=== PATIENT | female | born 1940 | race Caucasian/White ===

== ENCOUNTER 2019-10-01 22:38 | Emergency (ER) | payer MEDICARE, SELFPAY ==
[2019-10-01 22:46] VITALS: BP 184/86; PULSE 82; RESP 16; TEMP 37; O2SAT 96; BMI 23.8
--- NOTE | 2019-10-01 22:52 | ED_ITS ---
HPI - General Adult General: Chief complaint: Airway/Esophagus Foreign Body Stated complaint: food stuck in throat Time Seen by Provider: 10/01/19 22:52 Source: patient Mode of arrival: ambulatory Limitations: no limitations History of Present Illness: HPI narrative: Patient comes in today with complaints of food stuck in throat. Patient reports that she was eating a piece of meat and felt like it is stuck in her esophagus. Patient reports previous history of similar problems. Patient appears well. Patient is handling secretions well. Review of Systems General: Reports: 10 or more systems reviewed and unremarkable except in HPI and below GI: Reports: other (Food bolus) PFSH ED PFSH: Social History Smoking and tobacco status: never smoked Physical Exam Const: COMMON NORMALS: no acute distress and patient oriented x3 GENERAL APPEARANCE: cooperative HENMT: COMMON NORMALS: normocephalic, TM's normal bilaterally and Normal external nose present HEAD & SCALP: normal to inspection and normocephalic NOSE: Normal external nose present TYMPANIC MEMBRANE: TM's normal bilaterally MOUTH: Normal oral and palatal mucosa present THROAT: posterior oropharynx normal Eye: GENERAL EYE: appearance normal, both eyes and all related structures Neck/C-Spine: COMMON NORMALS: full ROM Lymph: LYMPHATIC: no lymphadenopathy noted Chest: COMMONS NORMALS: normal inspection of the chest Resp: COMMON NORMALS: normal respiratory effort EFFORT & INSPECTION: Yes able to speak in complete sentences Cardio: COMMON NORMALS: regular rate and regular rhythm RATE: regular rate RHYTHM: regular rhythm GI: COMMON NORMALS: non-tender : COMMON NORMALS: Yes no CVA tenderness BLADDER/KIDNEY EXAM: Yes no CVA tenderness Back/Pelvis: COMMON NORMALS: no CVA tenderness and thoracic and lumbar spine normal to inspection Extremity: COMMON NORMALS: normal to inspection Neuro: COMMON NORMALS: patient oriented x3 and moves all extremities Psych: COMMON NORMALS: mental status grossly normal and cooperative Skin: COMMON NORMALS: no rashes or lesions noted GENERAL SKIN EXAM: no lazaro hes or lesions noted Course Vital Signs: Vital signs: Vital Signs Temperature 98.6 F 10/01/19 22:46 Pulse Rate 82 10/01/19 22:46 Respiratory Rate 16 10/01/19 22:46 Blood Pressure 184/86 10/01/19 22:46 Pulse Oximetry 96 10/01/19 22:46 MDM - General Adult MDM Narrative: Medical decision making narrative: Patient comes in for concerns of food bolus. Exam noted abdomen was soft nontender. Posterior pharynx showed no abnormalities. Respirations were even lungs were clear to auscultation. Vital signs were normal except for elevated blood pressure. Patient was managing secretions well. Differential diagnosis included but not limited to Food impaction of the esophagus, esophageal stricture, hiatal hernia, or esophageal spasm. Patient had resolution of symptoms prior to x-ray. X-ray noted no abnormalities of acute nature. Patient was able to drink water without difficulty. And reported relief of symptoms. Reviewed exam with patient with recommendations for treatment and follow-up. Patient reported understanding and agreed with plan. Discharge Plan Discharge Patient Disposition: Home, Self-Care Clinical Impression: Food impaction of esophagus Qualifiers: Encounter type: initial encounter Qualified Code(s): T18.128A - Food in esophagus causing other injury, initial encounter Condition: Stable Prescriptions: No Action Unable to Assess RF: 0 Discharge Orders: Discharge Order (Routine); Ordered 10/01/19 Ordered By: Viet Washington Referrals: Pennie Dumont NP [Primary Care Provider] - Discharge Diet: Usual diet Discharge Activity: Increase activity as tolerated Activity Restrictions/Additional Instructions: Home and rest. Drink plenty of fluids. Activity as tolerated. Return to the ER for fever or new concerns. Follow-up with primary care as needed. Coding Level of Care Code ED Electric Organ Inspector And Repairer for Monique Freedman Exam Comprehensive
--- NOTE | 2019-10-01 23:01 | XRR_ITS ---
PROCEDURE INFORMATION: Exam: XR Chest, 2 Views Exam date and time: 10/01/2019 11:04 PM Age: 79 years old Clinical indication: Mass, lump, or swelling in the chest; Prior surgery; Surgery type: Cabg; Patient HX: PT C/O food stuck in lower esophagus after eating dinner this evening. ; Additional info: Foreign body TECHNIQUE: Imaging protocol: XR of the chest Views: 2 views. COMPARISON: CR Chest 1 [place] [id number] 06/24/2018 7:41 AM FINDINGS: Lungs: The lungs are clear bilaterally. Pulmonary vasculature within normal limits. Pleural space: No visible pneumothorax or pleural effusion. Heart/Mediastinum: Cardiomediastinal silhouette contour within normal limits. Bones/joints: Median sternotomy wires are present. XR/XR chest 2V* [id number] IMPRESSION: 1. No radiographic findings of acute cardiopulmonary disease.
[2019-10-01 23:39] VITALS: BP 222/123; PULSE 73; RESP 18; O2SAT 98
[2019-10-01] MEDS: nitroglycerin 1 gm/inch oint Pkt 1 INCH TOPICAL (23:43)
--- NOTE | 2019-10-01 23:52 | PC.NURSE ---
Pt. B/P elevated. NTG paste to right chest. Provider notified. To observe Pt. for B/P
[2019-10-02 00:29] VITALS: BP 187/106; PULSE 84; RESP 18; O2SAT 98
--- NOTE | 2019-10-02 00:30 | PC.NURSE ---
Pt. B/P remains high. Pt. declines to stay. Discharged to home
== END 2019-10-02 00:33 | disposition home or self-care (01) ==
PROVIDERS: Emergency Provider Nurse Practitioner Family; PCP Nurse Practitioner Family
DX: T18.128A Food in esophagus causing other injury, initial encounter (principal); X58.XXXA Exposure to other specified factors, initial encounter
CPT/HCPCS: 12345; 71046; 99281; 99283

== ENCOUNTER 2019-10-23 20:54 | Emergency (ER) | payer MEDICARE, SELFPAY ==
[2019-10-23 21:18] VITALS: BP 153/76; PULSE 86; RESP 18; TEMP 36.9; O2SAT 94; BMI 23.8
--- NOTE | 2019-10-23 23:16 | XRR_ITS ---
PROCEDURE INFORMATION: Exam: XR Pelvis Exam date and time: 10/23/2019 11:16 PM Age: 79 years old Clinical indication: Hip pain; Left hip TECHNIQUE: Imaging protocol: XR pelvis. Views: 1 or 2 view. COMPARISON: No relevant prior studies available. FINDINGS: Bones/joints: No visible acute osseous abnormality. No visible fracture, subluxation, or dislocation. Osteoporosis. No visible significant primary osteoarthritis of the hips. Soft tissues: Unremarkable. XR/XR pelvis 1-2V* [id number] IMPRESSION: Nonacute.
--- NOTE | 2019-10-23 23:16 | XRR_ITS ---
PROCEDURE INFORMATION: Exam: XR Lumbosacral Spine, 2 or 3 Views Exam date and time: 10/23/2019 11:16 PM Age: 79 years old Clinical indication: Low back pain TECHNIQUE: Imaging protocol: XR of the lumbosacral spine, 2 or 3 views. COMPARISON: No relevant prior studies available. FINDINGS: Vertebrae: No visible fracture, subluxation, or dislocation. No visible spondylolysis or spondylolisthesis. Intervertebral disc space heights relatively preserved for age. Mild scoliosis. Soft tissues: Unremarkable for age. Arterial sclerosis. Other findings: Osteoporosis. XR/XR lumbar spine 2-3V* [id number] IMPRESSION: Nonacute.
[2019-10-23 23:19] VITALS: BP 159/105; PULSE 74; RESP 18; TEMP 37; O2SAT 99
--- NOTE | 2019-10-23 23:31 | PC.NURSE ---
i agree with this assessment
[2019-10-24 01:25] VITALS: BP 146/98; PULSE 70; RESP 18; O2SAT 99
--- NOTE | 2019-10-24 04:36 | W.ED.FALL ---
HPI - Fall General: Chief Complaint: Fall Stated Complaint: fall/back pain Time Seen by Provider: 10/23/19 22:58 History of Present Illness: HPI Narrative: 79-year-old female who states that she fell 3 to 4 days ago. She talked to her practitioner, but no x-rays were ordered. She was walking across the room, and had a sudden dynamite pain in her low back. This is improved currently. It does however get worse with movement. MD complaint: fall Onset (ago): day(s) Fall from: standing Fall witnessed: no Place fall occurred: home Prolonged down time: no Location of injury: back Associated symptoms-after fall: Denies abdominal pain, chest pain, headache(s), neck pain or vertigo Review of Systems Const: Denies: fever(s) or chills Eyes: Denies: change in vision ENMT: Denies: swelling of lips/tongue or sinus pain Card: Denies: chest pain, palpitations or irregular heart rhythm Resp: Denies: dyspnea, productive cough, non-productive cough or wheezing GI: Denies: abdominal pain, nausea or vomiting : Denies: dysuria Musc: Reports: back pain; Denies: neck pain, joint redness or joint warmth Skin/Breast: Denies: rash or pruritus Neuro: Denies: headache(s), dizziness or vertigo Psych: Denies: anxiety PFSH ED PFSH: Social History Smoking and tobacco status: never smoked Physical Exam Const: GENERAL APPEARANCE: well developed ORIENTATION/CONSCIOUSNESS: Yes oriented to person, Yes oriented to place and Yes oriented to time HENMT: COMMON NORMALS: normocephalic, external ears normal and Normal external nose present HEAD & SCALP: normocephalic FACE & SINUS: normal facial exam NOSE: Normal external nose present and No nasal discharge present EXTERNAL EAR: Yes external ears normal MOUTH: tongue normal THROAT: posterior oropharynx normal; no peritonsillar mass Eye: COMMON NORMALS: Equal, round and reactive pupils present, EOMs intact bilaterally and conjunctivae normal EYELID: eyelids normal CONJUNCTIVA: Yes conjunctivae normal PUPIL: Yes Equal, round and reactive pupils present Neck/C-Spine: GENERAL: No tracheal deviation Chest: COMMONS NORMALS: normal inspection of the chest CHEST: No tenderness Resp: COMMON NORMALS: clear to auscultation bilaterally EFFORT & INSPECTION: No tachypneic, No respiratory distress, No retractions, No uses accessory muscles and No tracheal deviation AUSCULTATION: clear to auscultation bilaterally, no rhonchi, no wheezes and lung sounds not diminished Cardio: COMMON NORMALS: regular rate and regular rhythm RATE: regular rate RHYTHM: regular rhythm HEART SOUNDS: no murmurs PERIPHERAL PULSES: radial pulses present GI: INSPECTION: No abdominal distension AUSCULTATION: No Hyperactive bowel sounds present and No Hypoactive bowel sounds present PALPATION: No Guarding due to palpation present (GI) and No Rigid due to palpation PERCUSSION: no dullness to percussion and no tympanic to percussion Back/Pelvis: OTHER: Diffuse lumbar tenderness. No focal tenderness or deformity. Straight leg raise testing is negative. There is no pain on internal rotation of the hips. Neuro: SENSORIUM/ORIENTATION: Yes oriented to person, Yes oriented to place and Yes oriented to time Psych: COMMON NORMALS: mental status grossly normal Skin: COMMON NORMALS: no rashes or lesions noted GENERAL SKIN EXAM: no rashes or lesions noted Course Vital Signs: Vital signs: Vital Signs Temperature 98.6 F 10/23/19 23:19 Pulse Rate 70 10/24/19 01:25 Respiratory Rate 18 10/24/19 01:25 Blood Pressure 146/98 10/24/19 01:25 Pulse Oximetry 99 10/24/19 01:25 MDM - Fall MDM Narrative: Medical decision making narrative: X-rays are negative for acute fracture or significant disc narrowing given her age. She has no neurological symptoms. She will be allowed disposition. Discharge Plan Discharge Patient Disposition: Home, Self-Care Clinical Impression: Acute lumbar myofascial strain Qualifiers: Encounter type: initial encounter Qualified Code(s): S39.012A - Strain of muscle, fascia and tendon of lower back, initial encounter Condition: Stable Prescriptions: No Action Unable to Assess RF: 0 Discharge Orders: Discharge Order (Routine); Ordered 10/24/19 Ordered By: Chuck Smith Referrals: Pennie Dumont NP [Primary Care Provider] - 4-7 days Discharge Diet: Usual diet Discharge Activity: Increase activity as tolerated Patient Instructions: Low Back Strain (ED) Activity Restrictions/Additional Instructions: Return for fever, repeated episodes of syncope or passing out, chest discomfort, mental status changes, other concerning symptoms. Discharge Date/Time: 10/24/19 01:30 Coding Level of Care Code ED Assistive Technology Trainer for Monique Freedman
== END 2019-10-24 01:30 | disposition home or self-care (01) ==
PROVIDERS: Emergency Provider Emergency Medicine; PCP Nurse Practitioner Family
DX: S39.012A Strain of muscle, fascia and tendon of lower back, initial encounter (principal); X58.XXXA Exposure to other specified factors, initial encounter
CPT/HCPCS: 12345; 72100; 72170; 99281; 99283

== ENCOUNTER → 2019-12-29 17:27 | Outpatient (BNVA) | payer MEDICARE, MEDICAID, SELFPAY | PROVIDERS: PCP Nurse Practitioner Family; Visit Provider Nurse Practitioner | DX: S60.221A Contusion of right hand, initial encounter; W22.8XXA Striking against or struck by other objects, initial encounter; Z68.25 Body mass index [BMI] 25.0-25.9, adult; Z71.89 Other specified counseling; S69.90XA Unspecified injury of unspecified wrist, hand and finger(s), initial encounter | CPT/HCPCS: 73130 ==

== ENCOUNTER 2020-02-06 19:59 | Emergency (ER) | payer MEDICARE, SELFPAY ==
[2020-02-06 20:13] VITALS: BP 142/85; PULSE 93; RESP 20; TEMP 36.6; O2SAT 96; BMI 24.3
--- NOTE | 2020-02-06 21:48 | CTR_ITS ---
PROCEDURE INFORMATION: Exam: CT Abdomen And Pelvis Without Contrast Exam date and time: 02/06/2020 9:49 PM Age: 79 years old Clinical indication: Abdominal pain; Localized; Lower; Prior surgery; Surgery date: 6+ months; Surgery type: Appy, bladder, cabg; Patient HX: C/O abd/lbp - rectal pain and constipation TECHNIQUE: Imaging protocol: Computed tomography of the abdomen and pelvis without contrast. Radiation optimization: All CT scans at this facility use at least one of these dose optimization techniques: automated exposure control; mA and/or kV adjustment per patient size (includes targeted exams where dose is matched to clinical indication); or iterative reconstruction. COMPARISON: CT abdomen pelvis w con* [id number] 04/15/2018 6:33 PM RADIATION DOSE METRICS: Total DLP (mGy-cm): 429.45 FINDINGS: Mediastinal space: Large hiatal hernia. Liver: Normal. No mass. Gallbladder and bile ducts: Normal. No calcified stones. No ductal dilation. Pancreas: Normal. No ductal dilation. Spleen: Normal. No splenomegaly. Adrenals: Normal. No mass. Kidneys and ureters: Subcentimeter hypodensities in the right kidney are too small to characterize but most likely are cysts. No follow-up is recommended. The left kidney is normal. No hydronephrosis or calculus. Stomach and bowel: Small duodenal diverticulum. Diverticulosis of the sigmoid colon without diverticulitis. Small bowel is unremarkable. Scattered radiopaque contrast material and gas within normal caliber colon. Appendix: The appendix is not visualized. Intraperitoneal space: Unremarkable. No free air. No significant fluid collection. Vasculature: Coronary artery calcifications. Atherosclerotic calcifications. No aneurysm. Lymph nodes: Unremarkable. No enlarged lymph nodes. Urinary bladder: Unremarkable as visualized. Reproductive: The uterus is absent. Probable small retained ovaries. Bones/joints: Median sternotomy changes. Mild scoliosis. Mild L1 compression fracture, new since the prior study. Soft tissues: Fat containing hernia in the superior right abdominal wall. CT/CT abdomen pelvis wo con [id number] IMPRESSION: 1. No acute abnormality identified in the abdomen or pelvis. 2. Diverticulosis of the distal colon without diverticulitis. 3. Large hiatal hernia. 4. Mild L1 compression fracture newly acquired since the prior study. COMMENTS: Consistent with the [employer]'s Incidental Findings Committee white paper (J Am Gagan Radiol 2018): Any incidental renal lesion less than 1 cm or classified as too small to characterize, or any incidental cystic renal lesion characterized as simple-appearing, is likely benign. No follow-up imaging is recommended for these lesions per consensus recommendations based on imaging criteria. Radiation Dose CTDIVOL = (mGy): DLP = 429.45 (mGy-cm)
[2020-02-06 21:49] VITALS: RESP 18
[2020-02-06] MEDS: ondansetron 2 mg/ML SDV 2 mL 4 MG IVP (21:50)
[2020-02-06] MEDS: morphine 4 mg/mL SDV 1 mL IVP (21:50)
[2020-02-06 21:53] LABS: Basophils % 0.5 %; Eosinophils % 0.2 %; Hematocrit 39.7 % (37.0-47.0); Hemoglobin 12.9 g/dL (11.5-15.3); Lymphocytes # 1.1 10^3/uL (0.8-4.8); Lymphocytes % 19.7 %; Mean Corpuscular HGB Conc 32.5 g/dL (30.0-36.0); Mean Corpuscular Hemoglobin 28.9 pg (28.0-34.0); Mean Platelet Volume 10.4 fL (7.4-10.4); Monocytes # 0.9 10^3/uL (0.2-0.9); Monocytes % 16.5 %; Neutrophils # 3.56 10^3/uL (1.8-7.7); Neutrophils % 62.7 %; Nucleated Red Blood Cells % 0 %; Platelet Count 270 10^3/cmm (130-400); Red Blood Count 4.46 10^6/uL (4.1-5.3); White Blood Count 5.7 10^3/uL (4.0-10.0)
[2020-02-06 22:14] LABS: Lactate (Lactic Acid level) 1.5 mmol/L (0.5-2.2)
[2020-02-06 22:16] LABS: Alanine Aminotransferase 18 U/L (0-33); Albumin Level 4.8 g/dL (3.5-5.2); Alkaline Phosphatase 86 IU/L (35-105); Blood Urea Nitrogen 23 mg/dL (8-23); Calcium 10.6 mg/dL (8.5-10.5); Carbon Dioxide 18 mmol/L (22-29); Chloride 95 mmol/L (98-107); Globulin 3.5 g/dL (1.3-4.6); Glucose 122 mg/dL (65-115); Lipase 26 U/L (13-60); Osmolality Calculated 273 mOsm/kg (285-295); Sodium 129 mmol/L (136-145); Total Bilirubin 0.5 mg/dL (0.15-1.2); Total Protein 8.3 g/dL (6.6-8.7)
[2020-02-06 22:31] LABS: Anion Gap 20.2 (5-19); Aspartate Amino Transferase 42 U/L (0-32); Potassium 4.2 mmol/L (3.5-5.1)
[2020-02-06 22:45] LABS: C Reactive Protein 31.9 mg/L (0.0-4.9)
[2020-02-07 00:04] VITALS: BP 126/82
--- NOTE | 2020-02-07 00:08 | ED_ITS ---
HPI - Abdominal Pain General: Chief Complaint: Abdominal Pain Stated Complaint: ab pain Time Seen by Provider: 02/06/20 21:21 Source: patient Mode of arrival: ambulatory Limitations: no limitations History of Present Illness: HPI narrative: Patient is a very poor historian and it is difficult to obtain a history from her. She is obviously distressed due to some pain and keeps holding her anus making me think that it is hurting. She says that she is in pain but does not admit to pain in her rectum and is. She talks about having several surgeries for prolapse with meshes and seems to think that is what is going on. She also says she is having difficulty urinating. He denies fever, she does not answer if she is having constipation. The patient would not even lie down for me to examine her, she just stands hunched over in bed. Associated Symptoms: Denies chills, dysuria, fever(s), nausea and vomiting Review of Systems General: Reports: 10 or more systems reviewed and unremarkable except in HPI and below Const: Denies: fever(s), chills or body aches Eyes: Denies: change in vision or blurry vision ENMT: Denies: throat pain, enlarged tonsils, odynophagia, hoarseness, mouth pain or swelling of lips/tongue Card: Denies: palpitations, irregular heart rhythm, edema or swelling of feet/ankles Resp: Denies: dyspnea, productive cough or non-productive cough GI: Reports: abdominal pain; Denies: nausea or vomiting : Reports: difficulty voiding; Denies: flank pain, dysuria, urinary frequency, urinary urgency or urinary hesitancy Musc: Denies: neck pain, back pain or extremity swelling Skin/Breast: Denies: rash, pruritus or erythema Neuro: Denies: headache(s), numbness in extremities or weakness in extremities Endo: Denies: polyuria, polydipsia or tired all the time PFSH ED PFSH: Social History Smoking and tobacco status: never smoked Physical Exam Const: COMMON NORMALS: average body habitus, patient oriented x3, no limitations, healthy appearing, alert and well nourished GENERAL APPEARANCE: in distress HENMT: COMMON NORMALS: normocephalic, atraumatic and moist oral mucous membranes HEAD & SCALP: normocephalic and atraumatic Neck/C-Spine: COMMON NORMALS: no meningeal signs and no JVD Resp: COMMON NORMALS: normal respiratory effort, No retractions, No use of accessory muscles, clear to auscultation bilaterally and percussion normal AUSCULTATION: clear to auscultation bilaterally PERCUSSION: percussion normal Cardio: COMMON NORMALS: no JVD, regular rate, regular rhythm, S1 normal heart sound present, S2 normal heart sound present, No gallops present (Cardio), No clicks present (Cardio), No murmurs present (Cardio), No rub (Cardio) and Peripheral pulses 2+ throughout RATE: regular rate RHYTHM: regular rhythm HEART SOUNDS: S1 normal heart sound present and S2 normal heart sound present PERIPHERAL PULSES: Peripheral pulses 2+ throughout GI: COMMON NORMALS: Normal to inspection, nondistended, normoactive bowel sounds present, Soft to palpation, non-tender, No hepatosplenomegaly present, no masses and no bruits PALPATION: Yes Soft to palpation and Yes No hepatosplen omegaly present RECTAL EXAM: visual inspection normal, No Rectal prolapse, no fecal impaction and tenderness Extremity: COMMON NORMALS: normal to inspection, full ROM, capillary refill normal, no calf tenderness and no pedal edema Neuro: COMMON NORMALS: patient oriented x3 SENSORIUM/ORIENTATION: Yes alert MENINGEAL SIGNS: Yes no meningeal signs Skin: COMMON NORMALS: no rashes or lesions noted, no wounds, turgor normal, no jaundice, no petechiae and no mottling GENERAL SKIN EXAM: no rashes or lesions noted and turgor normal Course Reevaluation(s): Reevaluation #1: Discussed her lab and imaging findings with her. Symptoms consistent with a urinary tract infection. She was discharged home on oral antibiotics. Was given a dose of intravenous ceftriaxone in the emergency department. She voiced understanding Time: 00:38 Vital Signs: Vital signs: Vital Signs Temperature 97.9 F 02/06/20 20:13 Pulse Rate 93 02/06/20 20:13 Respiratory Rate 18 02/06/20 21:49 Blood Pressure 126/82 02/07/20 00:04 Pulse Oximetry 96 02/06/20 20:13 MDM - Abdominal Pain MDM Narrative: Medical decision making narrative: Patient who is a difficult historian presents to the emergency department with difficulty urinating and pain in her pelvis. Evaluation shows a possible UTI, otherwise was unremarkab le. She is given a dose of intravenous ceftriaxone in the emergency department and discharged home on oral antibiotics. She also has mild hyponatremia Medical Records: Attestation: I reviewed the patient's medical records. Lab Data: Attestation: I reviewed the patient's lab results. Labs: Lab Results 02/06/20 02/06/20 02/06/20 Range/Units 21:45 21:45 21:45 WBC 5.7 (4.0-10.0) 10^3/ uL RBC 4.46 (4.1-5.3) 10^6/u L Hgb 12.9 (11.5-15.3) g/dL Hct 39.7 (37.0-47.0) % MCV 89.0 (81-99) fL MCH 28.9 (28.0-34.0) pg MCHC 32.5 (30.0-36.0) g/dL RDW 14.0 (12.1-15.1) % Plt Count 270 (130-400) 10^3/c mm MPV 10.4 (7.4-10.4) fL Neut % (Auto) 62.7 % Lymph % (Auto) 19.7 % [place] % (Auto) 16.5 % Eos % (Auto) 0.2 % Baso % (Auto) 0.5 % Neut # (Auto) 3.56 (1.8-7.7) 10^3/u L Lymph # (Auto) 1.1 (0.8-4.8) 10^3/u L [place] # (Auto) 0.9 (0.2-0.9) 10^3/u L Eos # (Auto) 0.0 (0.0-0.8) 10^3/u L Baso # (Auto) 0.0 (0.0-0.1) 10^3/u L Nucleated RBC % (a uto) 0 % Nucleated RBCs # 0.0 /100WBC Sodium 129 L (136-145) mmol/L Potassium 4.2 (3.5-5.1) mmol/L Chloride 95 L (98-107) mmol/L Carbon Dioxide 18 L (22-29) mmol/L Anion Gap 20.2 H (5-19) BUN 23 (8-23) mg/dL Creatinine 1.2 H (0.5-0.9) mg/dL GFR Calculation Not Reportable Glucose 122 H (65-115) mg/dL Calculated Osmolal ity 273 L (285-295) mOsm/k g Lactate 1.5 (0.5-2.2) mmol/L Calcium 10.6 H (8.5-10.5) mg/dL Total Bilirubin 0.5 (0.15-1.2) mg/dL AST 42 H (0-32) U/L ALT 18 (0-33) U/L Alkaline Phosphata se 86 (35-105) IU/L C-Reactive Protein 31.9 H (0.0-4.9) mg/L Total Protein 8.3 (6.6-8.7) g/dL Albumin 4.8 (3.5-5.2) g/dL Globulin 3.5 (1.3-4.6) g/dL Lipase 26 (13-60) U/L Urine Color (Yellow) Urine Appearance (CLEAR) Urine pH (5-7) Ur Specific Gravit y (1.005-1.030) Urine Protein (Negative) Urine Glucose (UA) (Normal) Urine Ketones (Negative) Urine Blood (Negative) Urine Nitrate (Negative) Urine Bilirubin (Negative) Urine Urobilinogen (Negative) mg/dL Ur Leukocyte Damaris ase (Negative) Urine RBC (0-2) /hpf Urine WBC (0-5) /hpf Ur Squamous Epith Cells (0-5) /hpf Amorphous Sediment Urine Bacteria (NONE) /hpf 02/06/20 Range/Units 23:53 WBC (4.0-10.0) 10^3/ uL RBC (4.1-5.3) 10^6/u L Hgb (11.5-15.3) g/dL Hct (37.0-47.0) % MCV (81-99) fL MCH (28.0-34.0) pg MCHC (30.0-36.0) g/dL RDW (12.1-15.1) % Plt Count (130-400) 10^3/c mm MPV (7.4-10.4) fL Neut % (Auto) % Lymph % (Auto) % [place] % (Auto) % Eos % (Auto) % Baso % (Auto) % Neut # (Auto) (1.8-7.7) 10^3/u L Lymph # (Auto) (0.8-4.8) 10^3/u L [place] # (Auto) (0.2-0.9) 10^3/u L Eos # (Auto) (0.0-0.8) 10^3/u L Baso # (Auto) (0.0-0.1) 10^3/u L Nucleated RBC % (a uto) % Nucleated RBCs # /100WBC Sodium (136-145) mmol/L Potassium (3.5-5.1) mmol/L Chloride (98-107) mmol/L Carbon Dioxide (22-29) mmol/L Anion Gap (5-19) BUN (8-23) mg/dL Creatinine (0.5-0.9) mg/dL GFR Calculation Glucose (65-115) mg/dL Calculated Osmolal ity (285-295) mOsm/k g Lactate (0.5-2.2) mmol/L Calcium (8.5-10.5) mg/dL Total Bilirubin (0.15-1.2) mg/dL AST (0-32) U/L ALT (0-33) U/L Alkaline Phosphata se (35-105) IU/L C-Reactive Protein (0.0-4.9) mg/L Total Protein (6.6-8.7) g/dL Albumin (3.5-5.2) g/dL Globulin (1.3-4.6) g/dL Lipase (13-60) U/L Urine Color Yellow (Yellow) Urine Appearance Clear (CLEAR) Urine pH 5 (5-7) Ur Specific Gravit y 1.030 (1.005-1.030) Urine Protein Trace (Negative) Urine Glucose (UA) Norm (Normal) Urine Ketones 1+ H (Negative) Urine Blood Neg (Negative) Urine Nitrate Negative (Negative) Urine Bilirubin Neg (Negative) Urine Urobilinogen Norm (Negative) mg/dL Ur Leukocyte Damaris ase Trace H (Negative) Urine RBC 0-4 H (0-2) /hpf Urine WBC 10-15 H (0-5) /hpf Ur Squamous Epith Cells 0-4 H (0-5) /hpf Amorphous Sediment Not Reportable Urine Bacteria Trace (NONE) /hpf Imaging Data ^: CT Abd/Pel: Attestation: I personally reviewed and interpreted this imaging study as follows: Radiologist's impression: [facility] [address] [place] [address] CT Scan Report Signed Patient: Leonela Magaña #: [id number] : 2Acc#:[id number] Age/Sex: 79 / FADM Date: 02/06/20 Loc: ERRoom/Bed: Attending Dr: Ordering Provider/Ordering MD: Taty Quach MD, [facility] [place] Date of Service: 02/06/20 Procedure(s): CT abdomen pelvis wo con [id number] Accession Number(s): [id number] Report Number: [id number] PROCEDURE INFORMATION: Exam: CT Abdomen And Pelvis Without Contrast Exam date and time: 02/06/2020 9:49 PM Age: 79 years old Clinical indication: Abdominal pain; Localized; Lower; Prior surgery; Surgery date: 6+ months; Surgery type: Appy, bladder, cabg; Patient HX: C/O abd/lbp - rectal pain and constipation TECHNIQUE: Imaging protocol: Computed tomography of the abdomen and pelvis without contrast. Radiation optimization: All CT scans at this facility use at least one of these dose optimization techniques: automated exposure control; mA and/or kV adjustment per patient size (includes targeted exams where dose is matched to clinical indication); or iterative reconstruction. COMPARISON: CT abdomen pelvis w con* [id number] 04/15/2018 6:33 PM RADIATION DOSE METRICS: Total DLP (mGy-cm): 429.45 FINDINGS: Mediastinal space: Large hiatal hernia. Liver: Normal. No mass. Gallbladder and bile ducts: Normal. No calcified stones. No ductal dilation. Pancreas: Normal. No ductal dilation. Spleen: Normal. No splenomegaly. Adrenals: Normal. No mass. Kidneys and ureters: Subcentimeter hypodensities in the right kidney are too small to characterize but most likely are cysts. No follow-up is recommended. The left kidney is normal. No hydronephrosis or calculus. Stomach and bowel: Small duodenal diverticulum. Diverticulosis of the sigmoid colon without diverticulitis. Small bowel is unremarkable. Scattered radiopaque contrast material and gas within normal caliber colon. Appendix: The appendix is not visualized. Intraperitoneal space: Unremarkable. No free air. No significant fluid collection. Vasculature: Coronary artery calcifications. Atherosclerotic calcifications. No aneurysm. Lymph nodes: Unremarkable. No enlarged lymph nodes. Urinary bladder: Unremarkable as visualized. Reproductive: The uterus is absent. Probable small retained ovaries. Bones/joints: Median sternotomy changes. Mild scoliosis. Mild L1 compression fracture, new since the prior study. Soft tissues: Fat containing hernia in the superior right abdominal wall. CT/CT abdomen pelvis wo con [id number] IMPRESSION: 1. No acute abnormality identified in the abdomen or pelvis. 2. Diverticulosis of the distal colon without diverticulitis. 3. Large hiatal hernia. 4. Mild L1 compression fracture newly acquired since the prior study. COMMENTS: Consistent with the [employer]'s Incidental Findings Committee white paper (J Am Gagan Radiol 2018): Any incidental renal lesion less than 1 cm or classified as too small to characterize, or any incidental cystic renal lesion characterized as simple-appearing, is likely benign. No follow-up imaging is recommended for these lesions per consensus recommendations based on imaging criteria. Radiation Dose CTDIVOL = (mGy): DLP = 429.45 (mGy-cm) Dictated By:Orlando Sofia Signed By:Orlando SofiaSidequan Date/Time:02/06/202247 DD/ 45 Discharge Plan Discharge Patient Disposition: Home Clinical Impression: Urinary tract infection Qualifiers: Urinary tract infection type: acute cystitis Hematuria presence: without hematuria Qualified Code(s): N30.00 - Acute cystitis without hematuria Condition: Stable Prescriptions: New nitrofurantoin macrocrystal 100 mg capsule 100 mg PO BID 7 Days Qty: 14 RF: 0 Discharge Orders: Discharge Order (Routine); Ordered 02/07/20 Ordered By: Taty Quach Referrals: Paulina Dumont APRN [Primary Care Provider] - 1-3 days Discharge Diet: Usual diet Discharge Activity: Increase activity as tolerated Patient Instructions: Urinary Tract Infection in Women (ED) Activity Restrictions/Additional Instructions: Return for any new or worsening symptoms. Follow-up with your primary care provider within 3 days. Take the medication as prescribed. Coding Level of Care Code ED It Administrator for Chg Fwd Exam Comprehensive
[2020-02-07 00:23] LABS: Add Urine Microscopic? YES; Bilirubin Urine Neg (Negative); Blood Urine Neg (Negative); Glucose Urine UA Norm (Normal); Ketones Urine 1+ (Negative); Leukocyte Esterase Urine Trace (Negative); Nitrate Urine Negative (Negative); Protein Urine Trace (Negative); Urine Appearance Clear (CLEAR); Urine Color Yellow (Yellow); Urobilinogen Urine Norm (Negative); pH Urine 5 (5-7)
[2020-02-07 00:36] LABS: Add Urine Culture? No; Bacteria Urine TRACE /hpf; RBC Urine 0-4 /hpf (0-2); Squamous Epithelial Cell Urine 0-4 /hpf (0-5)
[2020-02-07] MEDS: cefTRIAXone 1,000 MG in sodium chloride 0.9% (plus) 50 ML 100 MG IV (01:02)
[2020-02-07 01:08] VITALS: BP 143/86; RESP 14
[2020-02-07 01:13] VITALS: BP 143/86; RESP 14
== END 2020-02-07 01:37 | disposition home or self-care (01) ==
PROVIDERS: Emergency Provider Family Medicine; PCP Nurse Practitioner Family
DX: N30.00 Acute cystitis without hematuria (principal)
CPT/HCPCS: 12345; 36415; 74176; 80053; 81001; 83605; 83690; 85025; 86140; 96365; 96375; 99283; J0696; J2270; J2405

== ENCOUNTER 2020-08-18 22:11 | Observation (INO) | payer MEDICARE, SELFPAY ==
[2020-08-18 22:14] VITALS: BP 171/92; PULSE 87; RESP 18; TEMP 36.5; O2SAT 96; BMI 16.9
[2020-08-18 22:24] VITALS: BP 171/92; PULSE 76; RESP 18; O2SAT 97
--- NOTE | 2020-08-18 22:39 | XRR_ITS ---
PROCEDURE INFORMATION: Exam: XR Chest Exam date and time: 08/18/2020 10:43 PM Age: 80 years old Clinical indication: Other: AMS; Prior surgery TECHNIQUE: Imaging protocol: XR of the chest. Views: 1 view. COMPARISON: CR XR chest 2V* [id number] 10/01/2019 11:18 PM FINDINGS: Lungs: Patient's chin obscures visualization of the lung apices, worse on the right. Pleural spaces: Unremarkable. No pleural effusion. No pneumothorax. Heart/Mediastinum: Unremarkable. No cardiomegaly. Bones/joints: There has been a median sternotomy. Intraperitoneal space: Surgical clips are present in the upper abdomen. XR/XR chest 1V portable [id number] IMPRESSION: Patient's chin obscures visualization of the lung apices, worse on the right. No acute disease.
--- NOTE | 2020-08-18 22:39 | CTR_ITS ---
PROCEDURE INFORMATION: Exam: CT Head Without Contrast Exam date and time: 08/18/2020 10:43 PM Age: 80 years old Clinical indication: Altered mental status/memory loss; Patient HX: AMS TECHNIQUE: Imaging protocol: Computed tomography of the head without contrast. Radiation optimization: All CT scans at this facility use at least one of these dose optimization techniques: automated exposure control; mA and/or kV adjustment per patient size (includes targeted exams where dose is matched to clinical indication); or iterative reconstruction. COMPARISON: CT head wo con* [id number] 06/24/2018 8:22 AM RADIATION DOSE METRICS: Total DLP (mGy-cm): 1089.79 FINDINGS: Brain: There is mild parenchymal atrophy and chronic small vessel disease. No acute infarct or hemorrhage. Cerebral ventricles: No ventriculomegaly. Bones/joints: Unremarkable. No acute fracture. Paranasal sinuses: Paranasal sinuses are clear. No air-fluid level. Mastoid air cells: Visualized mastoid air cells are clear. Soft tissues: Unremarkable. CT/CT head wo con* [id number] IMPRESSION: 1. No acute infarct or hemorrhage. 2. Mild parenchymal atrophy and chronic small vessel disease. Radiation Dose CTDIVOL = (mGy): DLP = 1089.79 (mGy-cm)
--- NOTE | 2020-08-18 22:52 | ED_ITS ---
HPI - Altered Mental Status General: Chief Complaint: Altered Mental Status Stated Complaint: altered loc Time Seen by Provider: 08/18/20 22:17 History of Present Illness: HPI narrative: 80-year-old female who was not responsive to family starting around 7 PM. She did not improve over time, so ambulance was called. Further history is taken from her granddaughter, who says that she has done this in the past with urinary tract infections. Granddaughter says that she is fallen twice in the last couple of days no injuries associated with falls evidently. complaint: altered mental status and decreased responsiveness Onset (ago): hour(s) Timing confirmed by: family member Severity: severe Consistency of symptoms: Unknown Context: history of similar presentation Review of Systems General: Reports: ROS unobtainable due to medical condition and ROS unobtainable due to mental status [facility] ED PFSH: Medical History Altered mental status 2019 Anxiety Chronic back pain Back pain neuro stimulator removed Coronary artery disease Diabetes Hypertension Pulmonary embolism Surgical History H/O inguinal hernia repair History of cataract surgery Hx of appendectomy S/P CABG x 1 Family History Other Unknown family medical history Social History Smoking and tobacco status: never smoked Alcohol intake: never Substance/Drug Use: never Household members: family Housing: House Physical Exam Const: GENERAL APPEARANCE: ill appearing and frail appearing ORIENTATION/CONSCIOUSNESS: Yes patient obtunded HENMT: COMMON NORMALS: normocephalic, external ears normal and Normal external nose present HEAD & SCALP: normocephalic FACE & SINUS: face symmetric NOSE: Normal external nose present EXTERNAL EAR: Yes external ears normal MOUTH: tongue normal TEETH & GINGIVA: Yes edentulous Chest: COMMONS NORMALS: normal inspection of the chest Resp: COMMON NORMALS: clear to auscultation bilaterally EFFORT & INSPECTION: Yes symmetric chest movement, Yes tachypneic and Yes labored AUSCULTATION: clear to auscultation bilaterally, no rales, no rhonchi and no wheezes Cardio: COMMON NORMALS: regular rate and regular rhythm RATE: regular rate RHYTHM: regular rhythm GI: COMMON NORMALS: Soft to palpation INSPECTION: Yes normal to inspection and No abdominal distension AUSCULTATION: Yes normoactive bowel sounds PALPATION: Yes Soft to palpation, Yes Firmness to palpation present (GI) and No Tenderness to palpation present (GI) Neuro: SPEECH: abnormal speech Course Consultations: Consultation #1: duane Vital Signs: Vital signs: Vital Signs Temperature 98.1 F 08/19/20 04:39 Pulse Rate 84 08/19/20 04:39 Respiratory Rate 22 H 08/19/20 04:39 Blood Pressure 182/74 08/19/20 04:39 Pulse Oximetry 96 08/19/20 04:39 MDM - Altered Mental Status MDM Narrative: Medical decision making narrative: 80-year-old female presents with obtundation. She is beginning to arouse easier currently. She awakens to voice, she makes sounds, but does not answer appropriately. She moves all extremities. Her head CT is negative. Chest x-ray is negative. Her vitals have been good with good oxygenation on room air. Currently blood pressure 132/67 with a heart rate of 83. Saturations been in the 90s. Blood gas is essentially normal on room air. Hemoglobin is 11. White blood cell count 9.2. Her CRP is significantly elevated, although without known cause. Urinalysis shows bacteriuria with only very few whites. With no clear cause as yet, and without return to her baseline which is walking without assistance, and talking plainly, she will be observed. Hospitalist team is requested CTA which has been ordered. Lab Data: Labs: Lab Results 08/18/20 08/18/20 08/18/20 Range/Units 22:32 22:32 22:32 WBC 9.2 (4.0-10.0) 10^3/ uL RBC 3.83 L (4.1-5.3) 10^6/u L Hgb 11.0 L (11.5-15.3) g/dL Hct 34.5 L (37.0-47.0) % MCV 90.1 (81-99) fL MCH 28.7 (28.0-34.0) pg MCHC 31.9 (30.0-36.0) g/dL RDW 13.4 (12.1-15.1) % Plt Count 360 (130-400) 10^3/c mm MPV 10.8 H (7.4-10.4) fL Neut % (Auto) 83.5 % Lymph % (Auto) 7.3 % [place] % (Auto) 7.8 % Eos % (Auto) 0.3 % Baso % (Auto) 0.8 % Neut # (Auto) 7.66 (1.8-7.7) 10^3/u L Lymph # (Auto) 0.7 L (0.8-4.8) 10^3/u L [place] # (Auto) 0.7 (0.2-0.9) 10^3/u L Eos # (Auto) 0.0 (0.0-0.8) 10^3/u L Baso # (Auto) 0.1 (0.0-0.1) 10^3/u L Nucleated RBC % (a uto) 0 % Nucleated RBCs # 0.0 /100WBC Specimen Type Sample Site ABG pH (7.35-7.45) ABG pCO2 (35-45) mmHg ABG pO2 (80.0-100.0) mmH g ABG HCO3 (22-26) mmol/L ABG Base Excess (-2.0-2.0) mmol/ L Rojas Test Hematocrit (37-47) % O2 Delivery Device FiO2 % Revenue Enforcement Collection Agent ID Sodium 135 L (136-145) mmol/L Potassium 4.2 (3.5-5.1) mmol/L Chloride 99 (98-107) mmol/L Carbon Dioxide 23 (22-29) mmol/L Anion Gap 17.2 (5-19) BUN 15 (8-23) mg/dL Creatinine 0.7 (0.5-0.9) mg/dL GFR Calculation Not Reportable Glucose 136 H (65-115) mg/dL Calculated Osmolal ity 283 L (285-295) mOsm/k g Lactate 1.1 (0.5-2.2) mmol/L Calcium 9.0 (8.5-10.5) mg/dL Phosphorus 3.2 (2.5-4.5) mg/dL Magnesium 2.5 H (1.7-2.3) mg/dL Total Bilirubin 0.8 (0.15-1.2) mg/dL AST 34 H (0-32) U/L ALT 17 (0-33) U/L Alkaline Phosphata se 82 (35-105) IU/L Ammonia (11-51) umol/L Creatine Kinase 654 H* (26-192) U/L Troponin T Baselin e (0-10) ng/L Troponin T 120 Min [place] (0-10) ng/L Delta Troponin T C-Reactive Protein 102.8 H (0.0-4.9) mg/L Total Protein 7.8 (6.6-8.7) g/dL Albumin 4.2 (3.5-5.2) g/dL Globulin 3.6 (1.3-4.6) g/dL Urine Color (Yellow) Urine Appearance (CLEAR) Urine pH (5-7) Ur Specific Gravit y (1.005-1.030) Urine Protein (Negative) Urine Glucose (UA) (Normal) Urine Ketones (Negative) Urine Blood (Negative) Urine Nitrate (Negative) Urine Bilirubin (Negative) Urine Urobilinogen (Negative) mg/dL Ur Leukocyte Damaris ase (Negative) Urine RBC (0-2) /hpf Urine WBC (0-5) /hpf Ur Squamous Epith Cells (0-5) /hpf Amorphous Sediment /hpf Urine Bacteria (NONE) /hpf Urine Mucus /hpf Urine Opiates Scre en (Negative) ng/mL Ur Barbiturates Sc reen (Negative) ng/mL Ur Phencyclidine S crn (Negative) ng/mL Ur Amphetamines Sc reen (Negative) ng/mL U Benzodiazepines Scrn (Negative) ng/mL Urine Cocaine Scre en (Negative) ng/mL U Marijuana (THC) Screen (Negative) ng/mL Ethyl Alcohol < 10 (0-10) mg/dL 08/18/20 08/18/20 08/18/20 Range/Units 22:32 22:47 22:47 WBC (4.0-10.0) 10^3/ uL RBC (4.1-5.3) 10^6/u L Hgb (11.5-15.3) g/dL Hct (37.0-47.0) % MCV (81-99) fL MCH (28.0-34.0) pg MCHC (30.0-36.0) g/dL RDW (12.1-15.1) % Plt Count (130-400) 10^3/c mm MPV (7.4-10.4) fL Neut % (Auto) % Lymph % (Auto) % [place] % (Auto) % Eos % (Auto) % Baso % (Auto) % Neut # (Auto) (1.8-7.7) 10^3/u L Lymph # (Auto) (0.8-4.8) 10^3/u L [place] # (Auto) (0.2-0.9) 10^3/u L Eos # (Auto) (0.0-0.8) 10^3/u L Baso # (Auto) (0.0-0.1) 10^3/u L Nucleated RBC % (a uto) % Nucleated RBCs # /100WBC Specimen Type Sample Site ABG pH (7.35-7.45) ABG pCO2 (35-45) mmHg ABG pO2 (80.0-100.0) mmH g ABG HCO3 (22-26) mmol/L ABG Base Excess (-2.0-2.0) mmol/ L Rojas Test Hematocrit (37-47) % O2 Delivery Device FiO2 % Revenue Enforcement Collection Agent ID Sodium (136-145) mmol/L Potassium (3.5-5.1) mmol/L Chloride (98-107) mmol/L Carbon Dioxide (22-29) mmol/L Anion Gap (5-19) BUN (8-23) mg/dL Creatinine (0.5-0.9) mg/dL GFR Calculation Glucose (65-115) mg/dL Calculated Osmolal ity (285-295) mOsm/k g Lactate (0.5-2.2) mmol/L Calcium (8.5-10.5) mg/dL Phosphorus (2.5-4.5) mg/dL Magnesium (1.7-2.3) mg/dL Total Bilirubin (0.15-1.2) mg/dL AST (0-32) U/L ALT (0-33) U/L Alkaline Phosphata se (35-105) IU/L Ammonia (11-51) umol/L Creatine Kinase (26-192) U/L Troponin T Baselin e 11 H (0-10) ng/L Troponin T 120 Min [place] (0-10) ng/L Delta Troponin T C-Reactive Protein (0.0-4.9) mg/L Total Protein (6.6-8.7) g/dL Albumin (3.5-5.2) g/dL Globulin (1.3-4.6) g/dL Urine Color Yellow (Yellow) Urine Appearance Sl cloudy A (CLEAR) Urine pH 5 (5-7) Ur Specific Gravit y 1.025 (1.005-1.030) Urine Protein 1+ H (Negative) Urine Glucose (UA) Norm (Normal) Urine Ketones 1+ H (Negative) Urine Blood Neg (Negative) Urine Nitrate Positive H (Negative) Urine Bilirubin 1+ H (Negative) Urine Urobilinogen 4 H (Negative) mg/dL Ur Leukocyte Damaris ase Negative (Negative) Urine RBC 5-10 H (0-2) /hpf Urine WBC 0-4 H (0-5) /hpf Ur Squamous Epith Cells 0-4 H (0-5) /hpf Amorphous Sediment 2+ /hpf Urine Bacteria 2+ H (NONE) /hpf Urine Mucus 2+ /hpf Urine Opiates Scre en Negative (Negative) ng/mL Ur Barbiturates Sc reen Positive H (Negative) ng/mL Ur Phencyclidine S crn Negative (Negative) ng/mL Ur Amphetamines Sc reen Negative (Negative) ng/mL U Benzodiazepines Scrn Negative (Negative) ng/mL Urine Cocaine Scre en Negative (Negative) ng/mL U Marijuana (THC) Screen Negative (Negative) ng/mL Ethyl Alcohol (0-10) mg/dL 08/18/20 08/19/20 08/19/20 Range/Units 22:58 02:45 03:29 WBC (4.0-10.0) 10^3/ uL RBC (4.1-5.3) 10^6/u L Hgb (11.5-15.3) g/dL Hct (37.0-47.0) % MCV (81-99) fL MCH (28.0-34.0) pg MCHC (30.0-36.0) g/dL RDW (12.1-15.1) % Plt Count (130-400) 10^3/c mm MPV (7.4-10.4) fL Neut % (Auto) % Lymph % (Auto) % [place] % (Auto) % Eos % (Auto) % Baso % (Auto) % Neut # (Auto) (1.8-7.7) 10^3/u L Lymph # (Auto) (0.8-4.8) 10^3/u L [place] # (Auto) (0.2-0.9) 10^3/u L Eos # (Auto) (0.0-0.8) 10^3/u L Baso # (Auto) (0.0-0.1) 10^3/u L Nucleated RBC % (a uto) % Nucleated RBCs # /100WBC Specimen Type Arterial Sample Site Radial, left ABG pH 7.43 (7.35-7.45) ABG pCO2 36.0 (35-45) mmHg ABG pO2 84.5 (80.0-100.0) mmH g ABG HCO3 23.9 (22-26) mmol/L ABG Base Excess -0.1 (-2.0-2.0) mmol/ L Rojas Test Pos Hematocrit 35.5 L (37-47) % O2 Delivery Device Room air FiO2 21.0 % Revenue Enforcement Collection Agent ID Harkr Sodium (136-145) mmol/L Potassium (3.5-5.1) mmol/L Chloride (98-107) mmol/L Carbon Dioxide (22-29) mmol/L Anion Gap (5-19) BUN (8-23) mg/dL Creatinine (0.5-0.9) mg/dL GFR Calculation Glucose (65-115) mg/dL Calculated Osmolal ity (285-295) mOsm/k g Lactate (0.5-2.2) mmol/L Calcium (8.5-10.5) mg/dL Phosphorus (2.5-4.5) mg/dL Magnesium (1.7-2.3) mg/dL Total Bilirubin (0.15-1.2) mg/dL AST (0-32) U/L ALT (0-33) U/L Alkaline Phosphata se (35-105) IU/L Ammonia 17 (11-51) umol/L Creatine Kinase (26-192) U/L Troponin T Baselin e (0-10) ng/L Troponin T 120 Min [place] 11.38 H (0-10) ng/L Delta Troponin T Not Reportable C-Reactive Protein (0.0-4.9) mg/L Total Protein (6.6-8.7) g/dL Albumin (3.5-5.2) g/dL Globulin (1.3-4.6) g/dL Urine Color (Yellow) Urine Appearance (CLEAR) Urine pH (5-7) Ur Specific Gravit y (1.005-1.030) Urine Protein (Negative) Urine Glucose (UA) (Normal) Urine Ketones (Negative) Urine Blood (Negative) Urine Nitrate (Negative) Urine Bilirubin (Negative) Urine Urobilinogen (Negative) mg/dL Ur Leukocyte Damaris ase (Negative) Urine RBC (0-2) /hpf Urine WBC (0-5) /hpf Ur Squamous Epith Cells (0-5) /hpf Amorphous Sediment /hpf Urine Bacteria (NONE) /hpf Urine Mucus /hpf Urine Opiates Scre en (Negative) ng/mL Ur Barbiturates Sc reen (Negative) ng/mL Ur Phencyclidine S crn (Negative) ng/mL Ur Amphetamines Sc reen (Negative) ng/mL U Benzodiazepines Scrn (Negative) ng/mL Urine Cocaine Scre en (Negative) ng/mL U Marijuana (THC) Screen (Negative) ng/mL Ethyl Alcohol (0-10) mg/dL Discharge Plan Discharge Patient Disposition: Placed in Observation Admit Provider: Dixon Chapman Clinical Impression: Encephalopathy acute Coding Level of Care Code ED Cloth Picker for [place] Fwd Exam Detailed
[2020-08-18 22:54] VITALS: BP 170/85; PULSE 74; RESP 18; O2SAT 97
[2020-08-18 22:55] LABS: Basophils # 0.1 10^3/uL (0.0-0.1); Basophils % 0.8 %; Eosinophils % 0.3 %; Hematocrit 34.5 % (37.0-47.0); Lymphocytes # 0.7 10^3/uL (0.8-4.8); Lymphocytes % 7.3 %; Mean Corpuscular HGB Conc 31.9 g/dL (30.0-36.0); Mean Corpuscular Hemoglobin 28.7 pg (28.0-34.0); Mean Corpuscular Volume 90.1 fL (81-99); Mean Platelet Volume 10.8 fL (7.4-10.4); Monocytes # 0.7 10^3/uL (0.2-0.9); Monocytes % 7.8 %; Neutrophils # 7.66 10^3/uL (1.8-7.7); Neutrophils % 83.5 %; Nucleated Red Blood Cells % 0 %; Platelet Count 360 10^3/cmm (130-400); Red Blood Count 3.83 10^6/uL (4.1-5.3); Red Cell Distribution Width 13.4 % (12.1-15.1); White Blood Count 9.2 10^3/uL (4.0-10.0)
[2020-08-18] MEDS: naloxone 0.4 mg/ml SDV IVP (23:00)
[2020-08-18] MEDS: sodium chloride 0.9% 1,000 ML 999 ML IV (23:00)
[2020-08-18] MEDS: ondansetron 2 mg/ML SDV 2 mL 4 MG IVP (23:00)
[2020-08-18 23:10] LABS: Lactate (Lactic Acid level) 1.1 mmol/L (0.5-2.2)
[2020-08-18 23:10] LABS: ABG PH Result 7.43 (7.35-7.45); Arterial Blood Gas Hematocrit 35.5 % (37-47); Base Excess ABG -0.1 mmol/L (-2.0-2.0); Blood Gas Allen Test Pos; Blood Gas Operator Identificat HARKR; Blood Gas Sample Site Radial, left; Blood Gas Sample Type Arterial; HCO3 ABG 23.9 mmol/L (22-26); Oxygen Device ROOM AIR; PO2 ABG 84.5 mmHg (80.0-100.0)
[2020-08-18 23:11] LABS: Alanine Aminotransferase 17 U/L (0-33); Albumin Level 4.2 g/dL (3.5-5.2); Alkaline Phosphatase 82 IU/L (35-105); Blood Urea Nitrogen 15 mg/dL (8-23); C Reactive Protein 102.8 mg/L (0.0-4.9); Carbon Dioxide 23 mmol/L (22-29); Chloride 99 mmol/L (98-107); Globulin 3.6 g/dL (1.3-4.6); Glucose 136 mg/dL (65-115); Magnesium 2.5 mg/dL (1.7-2.3); Osmolality Calculated 283 mOsm/kg (285-295); Phosphorus 3.2 mg/dL (2.5-4.5); Sodium 135 mmol/L (136-145); Total Bilirubin 0.8 mg/dL (0.15-1.2); Total Protein 7.8 g/dL (6.6-8.7)
[2020-08-18 23:15] VITALS: BP 170/85; PULSE 85; RESP 20; O2SAT 96
[2020-08-18 23:17] LABS: Alcohol Level < 10 mg/dL (0-10)
[2020-08-18 23:18] LABS: Anion Gap 17.2 (5-19); Aspartate Amino Transferase 34 U/L (0-32); Potassium 4.2 mmol/L (3.5-5.1)
[2020-08-18 23:19] LABS: Creatine Phosphokinase 654 U/L (26-192)
[2020-08-18 23:24] LABS: Add Urine Microscopic? YES; Bilirubin Urine 1+ (Negative); Blood Urine Neg (Negative); Glucose Urine UA Norm (Normal); Ketones Urine 1+ (Negative); Leukocyte Esterase Urine Negative (Negative); Nitrate Urine Positive (Negative); Protein Urine 1+ (Negative); Specific Gravity, Urine 1.025 (1.005-1.030); Urine Color Yellow (Yellow); Urobilinogen Urine 4 mg/dL (Negative); pH Urine 5 (5-7)
[2020-08-18 23:32] LABS: Amphetamines Screen Urine Negative (Negative); Barbiturates Screen Urine Positive (Negative); Benzodiazepines Screen Urine Negative (Negative); Cocaine Screen Urine Negative (Negative); Opiate Screen Urine Negative (Negative); PCP Screen Urine Negative (Negative); THC Screen Urine Negative (Negative)
--- NOTE | 2020-08-18 23:32 | ECG_ITS ---
[facility] Test Date: 2020-08-18 Pat Name: Leonela Magaña Department: Room: Gender: Female Frame Wirer: : 1940 Requested By: Chuck Granados Order Number: [id number] Grabiel MD: Angelito Perez M.D. Measurements Intervals [place] Rate: 83 P: 62 WI: 214 QRS: 60 QRSD: 119 T: 56 QT: 483 QTc: 568 Interpretive Statements SINUS RHYTHM WITH FIRST DEGREE AV BLOCK INCOMPLETE RIGHT BUNDLE BRANCH BLOCK [90+ ms QRS DURATION, TERMINAL R IN V1/V2, 40+ ms S IN I/aVL/V4/V5/V6] POSSIBLE INFERIOR MYOCARDIAL INFARCTION , OF INDETERMINATE AGE [30 ms Q WAVE IN II/aVF] Compared to ECG 06/24/2018 15:00:54 First degree AV block now present Myocardial infarct finding now present Sinus bradycardia no longer present ST (T wave) deviation no longer present Prolonged QT interval no longer present Electronically Signed On 08-20-2020 15:34:53 CDT by Angelito Perez M.D. [id number]
[2020-08-18 23:33] LABS: Add Urine Culture? Yes; Amorphous Sediment Urine 2+ /hpf; Bacteria Urine 2+ /hpf; Mucus Urine 2+ /hpf; Squamous Epithelial Cell Urine 0-4 /hpf (0-5); WBC Urine 0-4 /hpf (0-5)
[2020-08-19] VITALS (17 sets, daily range): BP systolic 111–197; BP diastolic 56–96; PULSE 72–109; RESP 16–22; TEMP 36.5–37.3; O2SAT 93–99
[2020-08-19 00:32] LABS: Troponin(5th) Baseline 11 ng/L (0-10)
[2020-08-19] MEDS: sodium chloride 0.9% 1,000 ML 999 ML IV (01:26)
--- NOTE | 2020-08-19 03:05 | P.HP_ITS ---
Providers/Chief Complaint Primary Care Provider: Paulina Dumont APRN Chief Complaint: altered loc History of Present Illness Leonela Magaña is a 80 year old female who presents with chief complaint of altered mental status. She carries history of coronary disease hypertension diet-controlled diabetes, had similar presentation in 2019, she was treated with ceftriaxone and lactulose for UTI and hyperammonemia however her mentation improved after Narcan, Cranial imaging were unremarkable along carotid Doppler. Granddaughter checked on her today around 7 PM and found her very drowsy, she initially attributed her presentation to being sleepy however when she checked on her again after few hours her condition was worsening and she was more altered/confused. EMS was called. As per the EMS report there were a lot of people in her house and it was very foul-smelling. In the ER she had normal CBC afebrile no leukocytosis, normal BMP and ABG CK 654 troponin not significantly high, cloudy urine positive nitrite and leukocyte Estrace -0-4 white cell, did not improve with Narcan toxicology screen positive for barbiturates, CT head unremarkable chest x-ray unremarkable I have requested CTA head and neck, ammonia level Review of Systems General: Reports: ROS unobtainable due to medical condition (Hypoactive delirium) Medications/Allergies Home Medications Medication Instructions Recorded Confirmed Last Taken Type No Known Home Medications 04/29/20 Unknown History cephalexin 250 mg capsule 250 mg PO TID 10 Days #30 cap 04/29/20 04/29/20 Unknown Rx Allergies Allergy/AdvReac Type Severity Reaction Status Date / Time ibuprofen Allergy DANIKAY-Bliste Verified 08/18/20 22:24 r PFSH Acute PFSH: Medical History Altered mental status 2019 Anxiety Chronic back pain Back pain neuro stimulator removed Coronary artery disease Diabetes Hypertension Pulmonary embolism Surgical History H/O inguinal hernia repair History of cataract surgery Hx of appendectomy S/P CABG x 1 Family History Other Unknown family medical history Social History Smoking and tobacco status: never smoked Alcohol intake: never Substance/Drug Use: never Household members: family Housing: House Vitals/I&O/Wt Last Vital Signs Temp 97.7 F 08/18/20 22:14 Pulse 80 08/19/20 00:00 Resp 21 H 08/19/20 00:00 BP 181/72 08/19/20 00:00 Pulse Ox 98 08/19/20 00:00 08/18/20 08/18/20 08/19/20 14:59 22:59 06:59 Intake Total 1999 Balance 1999 Weight last 48 hrs Weight 39.463 kg Physical Exam Narrative: EXAM NARRATIVE: female who is laying supine able to prote ct her airway saturating well on room air Hypertensive heart rate 80s sinus rhythm Pupils equal and reactive to light, she is able to make comprehensible sounds, able to locate pain. Moving all extremities, however she would keep her eyes closed and answer my question when I give her noxious stimuli, when I startled her with noxious stimuli she articulated words properly did not notice any slurring of speech Abdomen is flat soft nontender Bilateral lower extremity no edema gangrene or ulcer Do not see any petechia purpura Kerning's sign negative S1, S2 sinus rhythm Bilateral breath sounds no adventitious/audible stridor or wheezing No nystagmus of eyes noted Data : 08/18/20 22:32 08/18/20 22:32 A&P Assessment and plan (1) Encephalopathy acute: Status: Acute (2) Acute hypoactive delirium due to another medical condition: Status: Acute (3) Dehydration: Status: Acute Additional A&P Information Acute encephalopathy Hypoactive delirium, check TSH Does not have typical strokelike symptoms, CT head unremarkable ABG CBC BMP unremarkable we will request ammonia level, urinalysis revealed pyuria, cloudy urine Narcan did not improve her symptoms currently protecting her airway with hypertension saturating well on room air I would monitor her for now, seizure not ruled out we will check prolactin level however no acidosis on BMP Her glucose is 136 No signs of meningitis kerning sign is negative I would also request CTA head and neck utox screen positive for barbiturates which is unusual, home medications include nitrofurantoin and potassium supplementation Clinically does look dehydrated I will keep her on IV fluids Considering abnormal UA with high CRP suspicion is high for UTI related encephalopathy for now I would keep her on IV fluids and ceftriaxone History of pulmonary embolism I do not see any anticoagulation in her home medications, kindly reevaluate her home medications in the morning Goals of care was not able discussed with the patient, we will keep her full code N.p.o. advance diet once mentation is better DVT prophylaxis Attestations Medical Necessity Statement*: Anticipating discharge in less than 48 hours currently will need work-up for her hypoactive delirium Time Spent in Patient Care: (>than 50% of time spent in counselling and/or direct pt care on unit) . 30mins Coding Level of Care Code Acute [place]ward for Monique Freedman Diagnoses Encephalopathy acute G93.40 Acute hypoactive delirium due to another medical condition F05 Dehydration E86.0
--- NOTE | 2020-08-19 03:05 | CTR_ITS ---
PROCEDURE INFORMATION: Exam: CT Angiography Head With Contrast Exam date and time: 08/19/2020 3:10 AM Age: 80 years old Clinical indication: Cognitive deficit and drowsiness or somnolence; Altered mental status; Prior surgery; Surgery type: Cabg; Patient HX: AMS. Confusion. Lethargy. History of bilateral internal carotid stenosis. ; Additional info: AMS (per Dr. Chapman) TECHNIQUE: Imaging protocol: Computed tomography angiography of the head with intravenous contrast. 3D rendering (Not supervised by radiologist): MIP and/or 3D reconstructed images were created by the technologist. Radiation optimization: All CT scans at this facility use at least one of these dose optimization techniques: automated exposure control; mA and/or kV adjustment per patient size (includes targeted exams where dose is matched to clinical indication); or iterative reconstruction. Contrast material: OMNI 350; Contrast volume: 75 ml; Contrast route: INTRAVENOUS (IV); COMPARISON: CTA Head/Neck [id number] 06/24/2018 11:53 AM RADIATION DOSE METRICS: Total DLP (mGy-cm): 1236.91 FINDINGS: ANTERIOR CIRCULATION: Right internal carotid artery: Unremarkable. Intracranial segment is patent with no significant stenosis. No aneurysm. Right middle cerebral artery: Unremarkable. No occlusion or significant stenosis. No aneurysm. Right anterior cerebral artery: Unremarkable. No occlusion or significant stenosis. No aneurysm. Left internal carotid artery: Unremarkable. Intracranial segment is patent with no significant stenosis. No aneurysm. Left middle cerebral artery: Unremarkable. No occlusion or significant stenosis. No aneurysm. Left anterior cerebral artery: Unremarkable. No occlusion or significant stenosis. No aneurysm. POSTERIOR CIRCULATION: Right vertebral artery: Unremarkable. No occlusion or significant stenosis. No aneurysm. Left vertebral artery: Unremarkable. No occlusion or significant stenosis. No aneurysm. Basilar artery: Unremarkable. No occlusion or significant stenosis. No aneurysm. Right posterior cerebral artery: Unremarkable. No occlusion or significant stenosis. No aneurysm. Left posterior cerebral artery: Unremarkable. No occlusion or significant stenosis. No aneurysm. Brain: No definite mass, mass effect, or midline shift. Cerebral ventricles: No ventriculomegaly. Bones/joints: Unremarkable. No acute fracture. Soft tissues: Unremarkable. IMPRESSION: No large vessel stenosis or occlusion. PROCEDURE INFORMATION: Exam: CT Angiography Neck With Contrast Exam date and time: 08/19/2020 3:10 AM Age: 80 years old Clinical indication: Cognitive deficit and drowsiness or somnolence; Altered mental status; Prior surgery; Surgery type: Cabg; Patient HX: AMS. Confusion. Lethargy. History of bilateral internal carotid stenosis. ; Additional info: AMS (per Dr. Chapman) TECHNIQUE: Imaging protocol: Computed tomography angiography of the neck with contrast. 3D rendering (Not supervised by radiologist): MIP and/or 3D reconstructed images were created by the technologist. Radiation optimization: All CT scans at this facility use at least one of these dose optimization techniques: automated exposure control; mA and/or kV adjustment per patient size (includes targeted exams where dose is matched to clinical indication); or iterative reconstruction. Contrast material: OMNI 350; Contrast volume: 75 ml; Contrast route: INTRAVENOUS (IV); COMPARISON: CTA Head/Neck [id number] 06/24/2018 11:53 AM RADIATION DOSE METRICS: Total DLP (mGy-cm): 1236.91 FINDINGS: Right common carotid artery: No stenosis. No dissection or occlusion. Right internal carotid artery: There is heavy calcification of the proximal right ICA with approximately 50% stenosis. Right external carotid artery: No occlusion or stenosis of the origin. Right vertebral artery: No stenosis. No dissection or occlusion. Left common carotid artery: No stenosis. No dissection or occlusion. Left internal carotid artery: There is heavy calcification of the left proximal ICA with approximately 40% stenosis. Left external carotid artery: No occlusion or stenosis of the origin. Left vertebral artery: No stenosis. No dissection or occlusion. Aorta: There is mild atherosclerotic change at the aortic arch. Bones/joints: No acute fracture. Soft tissues: Normal. No significant soft tissue swelling. CT/CT angio headneck* [id number] IMPRESSION: 1. There is mild atherosclerotic change at the aortic arch. 2. There is heavy calcification of the proximal right ICA with approximately 50% stenosis. 3. There is heavy calcification of the left proximal ICA with approximately 40% stenosis. REFERENCES: NASCET CRITERIA. The degree of internal carotid artery stenosis is based on NASCET criteria. Normal is no stenosis. Mild is less than 50% stenosis. Moderate is 50-69% stenosis. Severe is 70% to 99% stenosis. Total occlusion is no detectable patent lumen. Radiation Dose CTDIVOL = (mGy): DLP = 1236.91~1236.91 (mGy-cm)
[2020-08-19 03:06] LABS: Troponin 5 2HR 11.38 ng/L (0-10)
[2020-08-19] MEDS: iohexol 350 mg/mL 100 mL Btl IV (03:56)
[2020-08-19 03:58] LABS: Ammonia 17 umol/L (11-51)
[2020-08-19] MEDS: cefTRIAXone 1,000 MG in sodium chloride 0.9% (plus) 50 ML 100 MG IV (04:51)
[2020-08-19] MEDS: enoxaparin 40 mg/0.4 mL Syringe SUBCUT (04:52)
[2020-08-19] MEDS: sodium chloride 0.9% 1,000 ML 100 ML IV ×2 (04:52→17:17)
[2020-08-19 05:42] LABS: Prolactin 14.83 ng/mL (4.8-23.3); Thyroid Stimulating Hormone 2.86 uIU/mL (0.27-4.20); Vitamin B12 400 pg/mL (232-1245)
[2020-08-19] MEDS: aspirin 81 mg EC Tablet PO (09:42)
[2020-08-19] MEDS: lisinopril 10 mg Tablet PO (09:42)
--- NOTE | 2020-08-19 09:56 | PC.PHAR ---
PT UNABLE TO CONFIRM MEDICATIONS. I CALLED 3 PHARMACYS, AND 2 FAMILY MEMBERS. NOTHING SHOWS BEING FILLED SINCE 06/13/2020. THERE IS REALLY NOTHING ON HER MEDICATION HISTORY. I WILL CONTINUE TO TRY TO REACH SOMEONE WHO CAN HELP VERIFY MEDICATION.
--- NOTE | 2020-08-19 10:06 | CTR_ITS ---
PROCEDURE INFORMATION: Exam: CT Abdomen And Pelvis Without Contrast Exam date and time: 08/19/2020 10:50 AM Age: 80 years old Clinical indication: Abdominal pain TECHNIQUE: Imaging protocol: Computed tomography of the abdomen and pelvis without contrast. Radiation optimization: All CT scans at this facility use at least one of these dose optimization techniques: automated exposure control; mA and/or kV adjustment per patient size (includes targeted exams where dose is matched to clinical indication); or iterative reconstruction. COMPARISON: CT abdomen pelvis con [id number] 02/06/2020 10:12 PM RADIATION DOSE METRICS: Total DLP (mGy-cm): 844.36 FINDINGS: Pleural spaces: Bilateral trace pleural effusions. Mediastinal space: Moderate size sliding hiatal hernia. Liver: The liver is homogeneous and is not enlarged. Gallbladder and bile ducts: The gallbladder is distended. No calcified gallstones. No gallbladder wall thickening. No pericholecystic fluid or inflammation. No biliary ductal dilatation. Pancreas: No peripancreatic inflammation. No pancreatic ductal dilation. Spleen: The spleen is homogeneous and is not enlarged. Adrenal glands: No adrenal mass. Kidneys and ureters: There is excreted contrast within the renal collecting systems and ureters due to the CTA performed earlier on the same day. No hydronephrosis or hydroureter. Stomach and bowel: No bowel obstruction, colitis or diverticulitis. Appendix: No evidence of appendicitis. Intraperitoneal space: No ascites or pneumoperitoneum. Vasculature: No aneurysm. Lymph nodes: No pathologically enlarged lymph nodes. Urinary bladder: There is excreted contrast within the urinary bladder. There is a bubble of gas which could be due to recent catheterization. No bladder wall thickening. There is however a cystocoele. Reproductive: Prior hysterectomy. Bones/joints: No acute osseous abnormality. Soft tissues: No acute soft tissue abnormality. CT/CT abdomen pelvis con [id number] IMPRESSION: 1. No bowel obstruction, colitis or diverticulitis. 2. Cystocele. Radiation Dose CTDIVOL = (mGy): DLP = 844.36 (mGy-cm)
[2020-08-19] MEDS: amlodipine 10 mg Tablet PO (11:43)
[2020-08-19] MEDS: polyethylene glycol 3350 Pkt 17 gm PO (11:44)
--- NOTE | 2020-08-19 13:11 | PM.PN ---
Subjective Subjective: Interval history: Patient was examined this morning, she is awake, but does not follow commands, she is mumbling words that do not make sense, she is moving her upper and lower extremities, but she does have complaints of lower abdominal pain, she keeps pressing on her lower abdomen, overnight she remains afebrile on room air, no tachycardia events, but is hypertensive, I cannot discern any facial droop, no slurring of her speech, she spontaneously moves her upper and lower extremities, is quite resistant to any examination Vitals/I&O/Wt Last Vital Signs Temp 99.2 F 08/19/20 11:52 Pulse 109 H 08/19/20 11:52 Resp 17 08/19/20 11:52 BP 197/95 08/19/20 11:52 Pulse Ox 97 08/19/20 11:52 08/18/20 08/19/20 08/19/20 22:59 06:59 14:59 Intake Total 2049 / 2049 Balance 2049 Weight last 48 hrs Weight 39.463 kg Physical Exam Const: COMMON NORMALS: no acute distress GENERAL APPEARANCE: anxious and frail appearing ORIENTATION/CONSCIOUSNESS: Yes awake and Yes confused; not oriented to person, not oriented to place and not oriented to time Neck/C-Spine: COMMON NORMALS: no JVD Chest: COMMONS NORMALS: normal inspection of the chest Resp: COMMON NORMALS: normal respiratory effort, No retractions, No use of accessory muscles and clear to auscultation bilaterally AUSCULTATION: clear to auscultation bilaterally Cardio: COMMON NORMALS: no JVD, regular rate, regular rhythm, S1 normal heart sound present and S2 normal heart sound present RATE: regular rate RHYTHM: regular rhythm HEART SOUNDS: S1 normal heart sound present and S2 normal heart sound present GI: COMMON NORMALS: Normal to inspection, nondistended, normoactive bowel sounds present and Soft to palpation PALPATION: Yes Soft to palpation and Yes Tenderness to palpation present (GI) Details: LLQ and RLQ Extremity: COMMON NORMALS: no pedal edema Neuro: SENSORIUM/ORIENTATION: No oriented to person, No oriented to place and No oriented to time OTHER: Does not follow neurologic testing, Data : 08/18/20 22:32 08/18/20 22:32 A&P Assessment and plan (1) Encephalopathy acute: -Likely secondary to urinary tract infection, barbiturates, dehydration -CT scan of the abdomen pelvis was negative for obstructive uropathy -Ammonia levels 19, TSH 2.86 -No focal neurologic deficits that I can discern -CT of the head no acute infarct or hemorrhage -CTA of the head and neck: There is heavy calcification of the proximal right ICA with approximately 50% stenosis. There is heavy calcification of the left proximal ICA with approximately 40% stenosis. -Troponin 11.38, sinus rhythm with first-degree AV block, incomplete RBBB, possible old infarct inferior wall plan: -Neurochecks, aspiration precautions, seizure precautions -Rocephin for antibiotic coverage, follow urine cultures, follow blood cultures -Cardiac echo ordered -continue aspirin, atorvastatin, metoprolol 25mg BID -N.p.o. -Full code -Lovenox for DVT prophylaxis Status: Acute (2) Acute hypoactive delirium due to another medical condition: Status: Acute (3) Dehydration: -continue IV hydration Status: Acute (4) Hypertensive urgency: -Start metoprolol 25 mg twice daily -Lisinopril 20 twice daily -Norvasc 5 mg daily Status: Acute Additional A&P Information Goals of care was not able discussed with the patient, we will keep her full code N.p.o. advance diet once mentation is better DVT prophylaxis Attestations Medical Necessity Statement*: patient requires hospitalization for AMS, UTI, barbiturates Coding Level of Care Code Acute Office Machine Service Supervisor for Monique Freedman Diagnoses Encephalopathy acute G93.40 Acute hypoactive delirium due to another medical condition F05 Dehydration E86.0 Hypertensive urgency I16.0
[2020-08-19] MEDS: Fleet Enema 133 mL Enema PR (13:59)
[2020-08-19] MEDS: metoprolol tartrate 25 mg Tablet PO (13:59)
[2020-08-19 14:44] LABS: Procalcitonin 0.08 ng/mL (0-0.5)
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
[2020-08-19] MEDS: lisinopril 10 mg Tablet 20 MG PO (18:31)
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
[2020-08-19] MEDS: atorvastatin 40 mg Tablet PO (20:13)
[2020-08-20] VITALS (7 sets, daily range): BP systolic 143–174; BP diastolic 63–78; PULSE 0–76; RESP 16–20; TEMP 36.4–37; O2SAT 93–98
[2020-08-20] MEDS: metoprolol tartrate 25 mg Tablet PO ×2 (01:18→14:48)
[2020-08-20] MEDS: sodium chloride 0.9% 1,000 ML 100 ML IV ×2 (02:54→13:38)
[2020-08-20] MEDS: cefTRIAXone 1,000 MG in sodium chloride 0.9% (plus) 50 ML 100 MG IV (03:52)
[2020-08-20] MEDS: enoxaparin 40 mg/0.4 mL Syringe SUBCUT (03:53)
[2020-08-20] MEDS: lisinopril 10 mg Tablet 20 MG PO ×2 (05:47→17:47)
[2020-08-20 06:29] LABS: Basophils # 0.1 10^3/uL (0.0-0.1); Basophils % 0.8 %; Eosinophils # 0.2 10^3/uL (0.0-0.8); Eosinophils % 2.5 %; Hematocrit 34.6 % (37.0-47.0); Hemoglobin 10.9 g/dL (11.5-15.3); Lymphocytes # 1.3 10^3/uL (0.8-4.8); Lymphocytes % 17.7 %; Mean Corpuscular HGB Conc 31.5 g/dL (30.0-36.0); Mean Corpuscular Hemoglobin 28.5 pg (28.0-34.0); Mean Corpuscular Volume 90.3 fL (81-99); Mean Platelet Volume 10.6 fL (7.4-10.4); Monocytes # 0.8 10^3/uL (0.2-0.9); Monocytes % 11.4 %; Neutrophils # 4.77 10^3/uL (1.8-7.7); Neutrophils % 67.3 %; Nucleated Red Blood Cells % 0 %; Platelet Count 389 10^3/cmm (130-400); Red Blood Count 3.83 10^6/uL (4.1-5.3); Red Cell Distribution Width 13.2 % (12.1-15.1); White Blood Count 7.1 10^3/uL (4.0-10.0)
[2020-08-20 06:53] LABS: Lactate (Lactic Acid level) 0.9 mmol/L (0.5-2.2)
[2020-08-20 07:14] LABS: Alanine Aminotransferase 14 U/L (0-33); Albumin Level 3.5 g/dL (3.5-5.2); Alkaline Phosphatase 68 IU/L (35-105); Anion Gap 17.2 (5-19); Aspartate Amino Transferase 23 U/L (0-32); Blood Urea Nitrogen 7 mg/dL (8-23); C Reactive Protein 80.8 mg/L (0.0-4.9); Calcium 8.8 mg/dL (8.5-10.5); Carbon Dioxide 22 mmol/L (22-29); Chloride 102 mmol/L (98-107); Globulin 3.6 g/dL (1.3-4.6); Glucose 74 mg/dL (65-115); Osmolality Calculated 283 mOsm/kg (285-295); Potassium 3.2 mmol/L (3.5-5.1); Sodium 138 mmol/L (136-145); Total Bilirubin 0.5 mg/dL (0.15-1.2); Total Protein 7.1 g/dL (6.6-8.7)
[2020-08-20] MEDS: polyethylene glycol 3350 Pkt 17 gm PO (10:07)
--- NOTE | 2020-08-20 12:27 | PM.PN ---
Subjective Subjective: Interval history: This morning patient was examined, she is alert, oriented to person, not to place, not to time, she is able to get up to the side of the bed, she follows my commands she squeezes my fingers she gives me a smile, she can wiggle her toes, nursing staff tried to get her to take her pills and she had choking episodes, tried crushed medication and she continued to have choking episodes, made n.p.o., she continues to have episodes of confusion, when I asked her if she might of taken her daughters phenobarbital and her benzo, she says yes, Vitals/I&O/Wt Last Vital Signs Temp 97.5 F L 08/20/20 07:08 Pulse 69 08/20/20 07:08 Resp 16 08/20/20 07:08 BP 150/78 08/20/20 07:08 Pulse Ox 98 08/20/20 07:08 08/19/20 08/20/20 08/20/20 22:59 06:59 14:59 Intake Total 1011.667 / 2010.667 Balance 1011.7 / 2010.7 Weight last 48 hrs Weight 39.463 kg Physical Exam Const: COMMON NORMALS: no acute distress and alert GENERAL APPEARANCE: anxious and frail appearing ORIENTATION/CONSCIOUSNESS: Yes oriented to person and Yes confused; not oriented to place and not oriented to time Neck/C-Spine: COMMON NORMALS: no JVD Resp: COMMON NORMALS: normal respiratory effort, No retractions, No use of accessory muscles and clear to auscultation bilaterally AUSCULTATION: clear to auscultation bilaterally Cardio: COMMON NORMALS: no JVD, regular rate, regular rhythm, S1 normal heart sound present and S2 normal heart sound present RATE: regular rate RHYTHM: regular rhythm HEART SOUNDS: S1 normal heart sound present and S2 normal heart sound present GI: COMMON NORMALS: Normal to inspection, nondistended, normoactive bowel sounds present, Soft to palpation, non-tender and No hepatosplenomegaly present PALPATION: Yes Soft to palpation and Yes No hepatosplenomegaly present Extremity: COMMON NORMALS: normal to inspection, full ROM and capillary refill normal Neuro: SENSORIUM/ORIENTATION: Yes alert, Yes oriented to person, No oriented to place and No oriented to time Data : 08/20/20 06:01 08/20/20 06:01 Micro: Microbiology 08/18/20 22:47 Urine Culture - Preliminary Urine Catheterized 08/19/20 13:54 Blood Culture - Preliminary Blood SPECIMEN COLLECTED 08/19/20 13:50 Blood Culture - Preliminary Blood SPECIMEN COLLECTED A&P Assessment and plan (1) Encephalopathy acute: -Likely secondary to urinary tract infection, accidental phenobarbital ingestion, dehydration -CT scan of the abdomen pelvis was negative for obstructive uropathy -Ammonia levels 19, TSH 2.86 -No focal neurologic deficits that I can discern -CT of the head no acute infarct or hemorrhage -CTA of the head and neck: There is heavy calcification of the proximal right ICA with approximately 50% stenosis. There is heavy calcification of the left proximal ICA with approximately 40% stenosis. -Troponin 11.38, sinus rhythm with first-degree AV block, incomplete RBBB, possible old infarct inferior wall plan: -Neurochecks, aspiration precautions, seizure precautions -Continue telemetry monitoring -Replace potassium -Rocephin for antibiotic coverage, follow urine cultures, follow blood cultures -Cardiac echo ordered -continue aspirin, atorvastatin, metoprolol 25mg BID -We will have speech therapy see patient, n.p.o. for now -Full code -Lovenox for DVT prophylaxis Status: Acute (2) Acute hypoactive delirium due to another medical condition: Status: Acute (3) Dehydration: -continue IV hydration Status: Acute (4) Hypertensive urgency: -Start metoprolol 25 mg twice daily -Lisinopril 20 twice daily -Norvasc 5 mg daily Status: Acute Additional A&P Information Goals of care was not able discussed with the patient, we will keep her full code N.p.o. advance diet once mentation is better DVT prophylaxis Attestations Medical Necessity Statement*: Patient requires hospitalization, inpatient, greater than 2 midnights, for altered mental status x-ray to UTI, accidental phenobarbital ingestion, dehydration Coding Level of Care Code Acute Rim Roller Setter for Monique Freedman Diagnoses Encephalopathy acute G93.40 Acute hypoactive delirium due to another medical condition F05 Dehydration E86.0 Hypertensive urgency I16.0
--- NOTE | 2020-08-20 12:33 | ECG_ITS ---
[facility] ED Test Date: 2020-08-20 Pat Name: Leonela Magaña Department: Room: 278 Gender: Female Medic Technician: : 1940 Requested By: Tavo Morales Order Number: [id number] Grabiel MD: Sindhu Villalobos M.D. Measurements Intervals [place] Rate: 70 P: 29 MN: 144 QRS: 50 QRSD: 127 T: 59 QT: 438 QTc: 474 Interpretive Statements SINUS RHYTHM RIGHT BUNDLE BRANCH BLOCK [120+ ms QRS DURATION, UPRIGHT V1, 40+ ms S IN I/aVL/V4/V5/V6] Compared to ECG 08/18/2020 23:50:23 Right bundle-branch block now present First degree AV block no longer present Incomplete right bundle-branch block no longer present Myocardial infarct finding no longer present Electronically Signed On 08-27-2020 10:40:29 CDT by Sindhu Villalobos M.D. [id number]
--- NOTE | 2020-08-20 13:11 | USCV_ITS ---
Archana Leonela Age: 80 Gender: F : 1940 Exam Date: 08/20/2020 09:18 Ordering Phys: Tavo Morales MD Technologist: Keren Reyes Exam Location: [facility] Indication: AMS BP: 150 / 78 HR: 66 Rhythm: Sinus Technical Quality: Technically difficult study MEASUREMENTS (Male / Female) Normal Values 2D ECHO LV Diastolic Diameter PLAX 2.3 cm 4.2 - 5.9 / 3.9 - 5.3 cm LV Systolic Diameter PLAX 2.0 cm LV Chamber Size 3.1 cm IVS Diastolic Thickness 2.0 cm 0.6 - 1.0 / 0.6 - 0.9 cm IVS Systolic Thickness 1.9 cm LVPW Diastolic Thickness 0.9 cm 0.6 - 1.0 / 0.6 - 0.9 cm LVPW Systolic Thickness 0.8 cm RV Chamber Size 2.2 cm LVOT Diameter 1.5 cm LV Ejection Fraction 2D Teich 30.3 % LV Ejection Fraction MOD 2C 59.1 % LV Ejection Fraction 2C AL 59.9 % LA Diameter 2.6 cm LA Width 3.0 cm LA Height 4.2 cm RA Width 2.1 cm RA Height 4.7 cm Aorta at Sinotubular Diameter 2.0 cm M-MODE LV Diastolic Diameter MM 2.6 cm 4.2 - 5.9 / 3.9 - 5.3 cm LV Systolic Diameter MM 1.2 cm LV Ejection Fraction MM Teich 86.1 % IVS Diastolic Thickness MM 1.1 cm 0.6 - 1.0 / 0.6 - 0.9 cm IVS Systolic Thickness MM 1.6 cm LVPW Diastolic Thickness MM 1.2 cm 0.6 - 1.0 / 0.6 - 0.9 cm LVPW Systolic Thickness MM 1.6 cm Aortic Annulus Diameter 3.1 cm LA Ao Ratio MM 1.0 MV E Point Septal Separation 0.3 cm DOPPLER AV Peak Velocity 147.0 cm/s LVOT Peak Velocity 110.0 cm/s AV Area Cont Eq vti 1.6 cm squared AV Area Cont Eq pk 1.4 cm squared MV Area PHT 3.9 cm squared Mitral E to A Ratio 0.8 MV E' Velocity 47.5 cm/s Mitral E to MV E' Ratio 17.3 Mitral E to LV E' Lateral Ratio 17.3 Mitral E to LV E' Septal Ratio 17.3 TR Peak Velocity 193.0 cm/s TR Peak Gradient 14.9 mmHg TV Peak E Velocity 43.0 cm/s Right Atrial Pressure 3.0 mmHg Pulmonary Artery Systolic Pressu 17.9 mmHg PV Peak Velocity 77.0 cm/s RV Acceleration Time 0.1 s RV Ejection Time 0.3 s RV AcT/ET 0.3 FINDINGS Left Ventricle This is technically difficult study. Normal left ventricular size. LV systolic function is normal with EF of 50-55%. Grossly no regional wall motion abnormalities are seen. Grade 1 diastolic Dysfunction is seen. Right Ventricle The right ventricle is normal in size and function. Right Atrium The right atrium is normal in size. Left Atrium The left atrium is normal in size. Mitral Valve Mild mitral annular calcification is seen without significant stenosis or prolapse. There is trace mitral regurgitation. Aortic Valve Grossly normal without significant sclerosis or stenosis. There is no aortic regurgitation. Tricuspid Valve Structurally normal tricuspid valve without significant stenosis. Trace tricuspid regurgitation. RVSP is 15 to 20 mmHg. Pulmonic Valve Not well-visualized. Pericardium Normal pericardium without effusion. Aorta Normal ascending aorta dimension. CONCLUSIONS This is a technically challenging study with limited visualization. LV systolic function is normal with EF of 55 to 60%. Grossly no regional wall motion abnormalities are seen. Grade 1 diastolic dysfunction is present. Trace mitral regurgitation is seen. Compared to prior echocardiogram from 03/22/2016, no significant changes are noted Angelito Perez MD (Electronically Signed) Final Date: 20 August 2020 16:22 S
[2020-08-20] MEDS: lidocaine 1% 5 ML in potassium chloride premix 100 ML 25 ML IV (13:37)
--- NOTE | 2020-08-20 16:16 | PC.PT ---
Approximately 1500; patient too lethargic to complete swallow evaluation at this time per speech pathologist, will reattempt tomorrow
[2020-08-20] MEDS: haloperidol inj 5 mg/mL INJ 1 mL 2 MG IM (19:38)
[2020-08-21] VITALS (7 sets, daily range): BP systolic 130–148; BP diastolic 58–78; PULSE 0–83; RESP 16–18; TEMP 36.1–36.9; O2SAT 96–98
[2020-08-21] MEDS: acetaminophen 325 mg Tablet PO ×2 (01:08→11:20)
[2020-08-21] MEDS: sodium chloride 0.9% 1,000 ML 100 ML IV (01:08)
[2020-08-21] MEDS: metoprolol tartrate 25 mg Tablet PO ×2 (01:08→14:53)
[2020-08-21] MEDS: cefTRIAXone 1,000 MG in sodium chloride 0.9% (plus) 50 ML 100 MG IV (04:31)
[2020-08-21] MEDS: enoxaparin 40 mg/0.4 mL Syringe SUBCUT (04:32)
[2020-08-21] MEDS: lisinopril 10 mg Tablet 20 MG PO (05:58)
[2020-08-21 08:02] LABS: Basophils % 0.8 %; Eosinophils # 0.2 10^3/uL (0.0-0.8); Eosinophils % 3.7 %; Hematocrit 29.8 % (37.0-47.0); Hemoglobin 9.5 g/dL (11.5-15.3); Lymphocytes # 1.3 10^3/uL (0.8-4.8); Lymphocytes % 25.7 %; Mean Corpuscular HGB Conc 31.9 g/dL (30.0-36.0); Mean Corpuscular Hemoglobin 28.8 pg (28.0-34.0); Mean Corpuscular Volume 90.3 fL (81-99); Mean Platelet Volume 10.4 fL (7.4-10.4); Monocytes # 0.6 10^3/uL (0.2-0.9); Monocytes % 11.8 %; Neutrophils # 2.83 10^3/uL (1.8-7.7); Neutrophils % 57.8 %; Nucleated Red Blood Cells % 0 %; Platelet Count 338 10^3/cmm (130-400); Red Cell Distribution Width 13.3 % (12.1-15.1); White Blood Count 4.9 10^3/uL (4.0-10.0)
[2020-08-21 08:13] LABS: Lactate (Lactic Acid level) 0.7 mmol/L (0.5-2.2)
[2020-08-21 08:20] LABS: Procalcitonin 0.07 ng/mL (0-0.5)
[2020-08-21 08:34] LABS: Alanine Aminotransferase 11 U/L (0-33); Albumin Level 2.8 g/dL (3.5-5.2); Alkaline Phosphatase 54 IU/L (35-105); Anion Gap 13.4 (5-19); Aspartate Amino Transferase 17 U/L (0-32); Blood Urea Nitrogen 9 mg/dL (8-23); Carbon Dioxide 20 mmol/L (22-29); Chloride 108 mmol/L (98-107); Globulin 3.2 g/dL (1.3-4.6); Glucose 81 mg/dL (65-115); Magnesium 1.9 mg/dL (1.7-2.3); Osmolality Calculated 284 mOsm/kg (285-295); Phosphorus 2.6 mg/dL (2.5-4.5); Potassium 3.4 mmol/L (3.5-5.1); Sodium 138 mmol/L (136-145); Total Bilirubin 0.2 mg/dL (0.15-1.2)
[2020-08-21] MEDS: amlodipine 10 mg Tablet PO (09:29)
[2020-08-21] MEDS: aspirin 81 mg EC Tablet PO (09:30)
[2020-08-21] MEDS: polyethylene glycol 3350 Pkt 17 gm PO (09:30)
--- NOTE | 2020-08-21 10:38 | P.PN_ITS ---
Subjective Subjective: Interval history: History and physical and progress notes reviewed. Patient wakes up, but is very groggy. She is confused, and not for sure where she is at. She says a few words which are in part appropriate. She rapidly goes back to sleep. Medications: Reviewed: Yes Vitals/I&O/Wt Last Vital Signs Temp 97.4 F L 08/21/20 07:58 Pulse 64 08/21/20 07:58 Resp 18 08/21/20 07:58 BP 148/68 08/21/20 07:58 Pulse Ox 96 08/21/20 07:58 08/20/20 08/21/20 08/21/20 22:59 06:59 14:59 Intake Total 105 / 1105 1008.333 / 3.333 Output Total 0 / 0 Balance 105 / 1105 1008.333 / 2112.333 Physical Exam Narrative: EXAM NARRATIVE: General exam is a sleepy white female, confused HEENT: Pupils equally round. Oropharynx is clear. Neurologic: No obvious focal deficits Neck is supple no lymphadenopathy or thyromegaly Cardiovascular regular rate and rhythm without murmur Lungs clear and no wheezing or crackles Abdomen is soft with positive bowel sounds. No obvious organomegaly deferred Extremities no cyanosis clubbing or edema. Data : 08/21/20 07:20 08/21/20 07:20 Micro: Microbiology 08/18/20 22:47 Urine Culture - Final Urine Catheterized 08/19/20 13:54 Blood Culture - Preliminary Blood NEGATIVE TO DATE 08/19/20 13:50 Blood Culture - Preliminary Blood NEGATIVE TO DATE A&P Assessment and plan (1) Encephalopathy acute: Concern of underlying dementia, possibly phenobarbital ingestion as well. Urine culture negative. No evidence of UTI. Will discontinue ceftriaxone Ammonia level and TSH normal. B12 is also normal. CT head no acute changes. CTA head and neck no flow-limiting stenosis. Echo largely normal She did receive Haldol yesterday 2 mg. I am going to discontinue Haldol as needed. I will discontinue her Ativan. She did not receive this but it is lis zane as a as needed medication. In discussion with daughter she reports she has mild to moderate dementia underlying. Also concern of accidental ingestion of daughter's med which included phenobarbital. Family will come up today and interact with patient to make sure she is at baseline prior to discharge. Status: Acute (2) Acute hypoactive delirium due to another medical condition: See above Status: Acute (3) Dehydration: Resolved. Continue hydration at lower rate, 50 cc Status: Acute (4) Hypertensive urgency: Continue metoprolol, lisinopril, Norvasc. Fair control of blood pressure currently. Status: Acute Additional A&P Information Multiple other medical problems as outline by past medical history. Full code. Lovenox for DVt prophylaxis. Attestations Medical Necessity Statement*: Further hospitalization to be determined after family/daughter visits. Coding Level of Care Code Acute Fingerprint Technician for [facility] Fwd Diagnoses Encephalopathy acute G93.40 Acute hypoactive delirium due to another medical condition F05 Dehydration E86.0 Hypertensive urgency I16.0
[2020-08-21] MEDS: potassium chloride oral liq 20 mEq/15 mL UDC 40 MEQ PO (11:20)
[2020-08-21] MEDS: sodium chloride 0.9% 1,000 ML 50 ML IV (12:39)
--- NOTE | 2020-08-21 14:15 | P.DS_ITS ---
Discharge Providers Date of Admission: 08/20/20 14:03 Date of Discharge: August 21, 2020 Attending Provider at Admission: Dixon Chapman MD Attending Provider at Discharge: Franklin Whitney MD Primary Care Provider: Paulina Dumont APRN Diagnoses at Discharge Discharge Diagnosis (1) Encephalopathy acute: Status: Acute (2) Acute hypoactive delirium due to another medical condition: Status: Acute (3) Dehydration: Status: Acute (4) Hypertensive urgency: Status: Acute Reason for Visit Reason for Visit: altered loc Hospital Course Hospital Course Leonela is a 80-year-old white female with underlying dementia who presented to the hospital on August 19 with altered mental status. Family had brought her in as she seemed more altered and confused than her norm. A rather extensive work-up occurred. CT head demonstrated no acute changes. CTA head and neck demonstrated no flow-limiting stenosis. There was concern of UTI at first so the patient was placed on ceftriaxone. Urine drug screen demonstrated phenobarbital, which is one of her daughters medications which she will occasionally help administer. This was thought to be a significant factor in her lethargy. She was given supportive care with IV fluids. Ammonia level, TSH and B12 were also checked and normal. On the that she still had significant encephalopathy on exam. By the she was sleepy but was able to answer some questions and by the time of the afternoon she was back to to her baseline. Patient's family confirmed this by visiting. I discussed that she should not be able to be anywhere near where she could take any of her daughter's medication inadvertently. Patient and family deny any purposeful intent to taking phenobarbital. Ultimately urine culture was negative so she will not need antibiotics upon discharge. Multiple medication changes were made for hypertension as this was uncontrolled on presentation. She will follow-up with her primary care provider as noted. Physical Exam Narrative: EXAM NARRATIVE: In the afternoon her exam was alert, responsive, eager to go home. Neurologic: No obvious focal deficits Cardiovascular regular rate and rhythm without murmur Lungs clear Abdomen is soft with positive bowel sounds Extremities no cyanosis clubbing or edema Discharge Data Data Completed and Pending: Completed Studies During Hospitalization Category Date Time Status CT abdomen pelvis wo con [id number] Stat Cat Scan 08/19/20 10:[address] angio headneck * [id number] Urge nt Cat Scan 08/19/20 03:[address] head wo con* 7 [id number] Urgent Cat Scan 08/18/20 22:39 Completed XR chest 1[place] [id number] Urgent Exams 08/18/20 22:39 Completed CV echo complete* [id number] Routine Ultrasound 08/20/20 13:11 Completed Pending at discharge Category Date Time Status Basic Metabolic P debbie AM LABS Lab 08/22/20 04:00 Ordered Blood Culture Sta t Lab 08/19/20 13:54 Results Complete Blood Co unt w/Auto AM LABS Lab 08/22/20 04:00 Ordered Labs from last 24 hours 08/21/20 08/21/20 08/21/20 07:20 07:20 07:20 WBC 4.9 RBC 3.30 L Hgb 9.5 L Hct 29.8 L MCV 90.3 MCH 28.8 MCHC 31.9 RDW 13.3 Plt Count 338 MPV 10.4 Neut % (Auto) 57.8 Lymph % (Auto) 25.7 [place] % (Auto) 11.8 Eos % (Auto) 3.7 Baso % (Auto) 0.8 Neut # (Auto) 2.83 Lymph # (Auto) 1.3 [place] # (Auto) 0.6 Eos # (Auto) 0.2 Baso # (Auto) 0.0 Nucleated RBC % (a uto) 0 Nucleated RBCs # 0.0 Sodium 138 Potassium 3.4 L Chloride 108 H Carbon Dioxide 20 L Anion Gap 13.4 BUN 9 Creatinine 0.6 GFR Calculation Not Reportable Glucose 81 Calculated Osmolal ity 284 L Lactate 0.7 Calcium 8.0 L Phosphorus 2.6 Magnesium 1.9 Total Bilirubin 0.2 AST 17 ALT 11 Alkaline Phosphata se 54 C-Reactive Protein 35.0 H Total Protein 6.0 L Albumin 2.8 L Globulin 3.2 Procalcitonin 0.07 Vitals: Last Vital Signs Temp 98.5 F 08/21/20 11:33 Pulse 72 08/21/20 11:33 Resp 18 08/21/20 11:33 BP 136/78 08/21/20 11:33 Pulse Ox 98 08/21/20 11:33 Discharge Plan Discharge Patient Disposition: Home Health Service Condition: Stable Prescriptions: New metoprolol tartrate 25 mg Tablet 25 mg PO Q12H Qty: 60 RF: 0 lisinopril 10 mg Tablet 20 mg PO Q12H Qty: 120 RF: 0 amlodipine 10 mg Tablet 10 mg PO DAILY Qty: 30 RF: 0 Continued furosemide 20 mg tablet 20 mg PO DAILY RF: 0 Discharge Orders: Discharge Order (Routine); Ordered 08/21/20 Ordered By: Franklin Whitney Referrals: Paulina Dumont APRN [Primary Care Provider] - 4-7 days Discharge Diet: Usual diet Discharge Activity: Increase activity as tolerated Activity Restrictions/Additional Instructions: Use walker at home. Take all medicine as prescribed. Avoid taking unprescribed meds. Discharge Attestations Time Spent in Discharge Care*: greater than 30 min Quality Metrics Clinical Quality Measures During this hospital stay, did patient experience: None Coding Level of Care Code Acute Chg FW DC note Diagnoses Encephalopathy acute G93.40 Acute hypoactive delirium due to another medical condition F05 Dehydration E86.0 Hypertensive urgency I16.0
== END 2020-08-21 16:15 | disposition home or self-care (01) | DRG 92 ==
LOC: ER 08-19 03:47 → MEDSURG 08-19 04:04
PROVIDERS: Family Medicine; Admitting Provider Internal Medicine; Emergency Provider Emergency Medicine; PCP Nurse Practitioner Family; Visit Provider Internal Medicine
DX: G92 Toxic encephalopathy (principal); F05 Delirium due to known physiological condition; E86.0 Dehydration; I16.0 Hypertensive urgency; N39.0 Urinary tract infection, site not specified; I10 Essential (primary) hypertension; I25.10 Atherosclerotic heart disease of native coronary artery without angina pectoris; Z95.5 Presence of coronary angioplasty implant and graft; E11.9 Type 2 diabetes mellitus without complications; F41.9 Anxiety disorder, unspecified; G89.29 Other chronic pain; M54.9 Dorsalgia, unspecified; Z86.711 Personal history of pulmonary embolism; M54.2 Cervicalgia; R29.6 Repeated falls; I44.0 Atrioventricular block, first degree; I25.2 Old myocardial infarction; I65.23 Occlusion and stenosis of bilateral carotid arteries; F03.90 Unspecified dementia, unspecified severity, without behavioral disturbance, psychotic disturbance, mood disturbance, and anxiety; T42.3X1A Poisoning by barbiturates, accidental (unintentional), initial encounter
CPT/HCPCS: 36415; 36600; 70450; 70496; 70498; 71045; 74176; 80053; 80306; 80307; 81001; 82140; 82550; 82607; 82803; 83605; 83735; 84100; 84145; 84146; 84443; 84484; 85025; 86140; 87040; 87086; 92523; 92610; 93005; 93306; 96361; 96372; 96374; 96375; 97161; 97165; 97530; 99285; G0378; J0696; J1630; J1650; J2310; J2405; J3480; J7030; Q9967

== ENCOUNTER 2020-09-19 11:57 | Outpatient (CLI) | payer MEDICARE, SELFPAY ==
[2020-09-19 14:19] LABS: Add Urine Microscopic? YES; Bilirubin Urine Neg (Negative); Blood Urine Neg (Negative); Glucose Urine UA Norm (Normal); Ketones Urine Negative (Negative); Leukocyte Esterase Urine Negative (Negative); Nitrate Urine Negative (Negative); Protein Urine Neg (Negative); Specific Gravity, Urine 1.025 (1.005-1.030); Urine Appearance Hazy (CLEAR); Urine Color Yellow (Yellow); Urobilinogen Urine 1 mg/dL (Negative); pH Urine 5 (5-7)
[2020-09-19 14:23] LABS: Add Urine Culture? No; Amorphous Sediment Urine 2+ /hpf; Bacteria Urine TRACE /hpf; RBC Urine 0-4 /hpf (0-2); Squamous Epithelial Cell Urine 0-4 /hpf (0-5); WBC Urine 0-4 /hpf (0-5)
== END 2020-09-19 11:58 | disposition home or self-care (01) ==
PROVIDERS: PCP Nurse Practitioner Family; Visit Provider Nurse Practitioner Family
DX: N39.0 Urinary tract infection, site not specified (principal)
CPT/HCPCS: 81001; 87086

== ENCOUNTER 2020-09-28 14:26 | Emergency (ER) | payer MEDICARE, MEDICAID, SELFPAY ==
--- NOTE | 2020-09-28 | CT_ITS ---
WS: [id number] CT FACIAL BONES TECHNIQUE: Noncontrast facial bones with coronal and sagittal reformatted images. CLINICAL INFORMATION: FALL COMPARISON: None. DLP: 1722.[address] scans at [facility] use at least one of these dose optimization techniques: automat ed exposure control; mA and/or kV adjustment per patient size (includes targeted exams where dose is matched to clinical indication); or iterative reconstruction. FINDINGS: Mild left to right nasal septal deviation. Small rightward directed spur. Mild narrowing of the ostio meatal units bilaterally which are patent. Paranasal sinuses are well aerated. Mastoid air cells well aerated. Scalp edema overlying the right frontal calvarium. No underlying calvarial fractures. Anterior nasal bones are normal. Normal pterygoid plates. Lateral orbits are normal. Normal lamina pa pyracea. Paranasal sinuses are well aerated. Inferior orbits are normal. Normal mandible. No evidence of mandibular fracture dislocation. 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 Slight anterolisthesis upper cervical spine at C3-C4 and C4-C5. CT/CT facial bones wo con* [id number] IMPRESSION: 1. Right frontal scalp edema. No underlying fractures. 2. No acute facial fractures. 3. Paranasal sinuses and mastoid air cells are well aerated.
[2020-09-28 14:34] VITALS: BP 117/44; PULSE 61; RESP 16; O2SAT 98; BMI 22.4
[2020-09-28 14:36] VITALS: PULSE 58
--- NOTE | 2020-09-28 14:36 | ECG_ITS ---
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 Measurements Intervals [place] Rate: 58 P: 58 ND: 191 QRS: 53 QRSD: 112 T: 47 QT: 518 QTc: 510 Interpretive Statements SINUS BRADYCARDIA INCOMPLETE RIGHT BUNDLE BRANCH BLOCK [90+ ms QRS DURATION, TERMINAL R IN V1/V2, 40+ ms S IN I/aVL/V4/V5/V6] PROLONGED QT INTERVAL Compared to ECG 08/20/2020 13:19:34 Incomplete right bundle-branch block now present Prolonged QT interval now present Sinus rhythm no longer present Right bundle-branch block no longer present Electronically Signed On 09-28-2020 23:48:53 CDT by Conor Jaquez M.D. [id number]
--- NOTE | 2020-09-28 14:37 | XRR_ITS ---
PROCEDURE INFORMATION: Exam: XR Chest Exam date and time: 09/28/2020 3:03 PM Age: 80 years old Clinical indication: Cough and dyspnea; Additional info: Dyspnea/cough TECHNIQUE: Imaging protocol: XR of the chest. Views: 1 view. COMPARISON: CR XR chest 1V portable [id number] 08/18/2020 10:44 PM FINDINGS: Lungs: Minimal bibasilar atelectasis. No consolidation. Pleural spaces: Unremarkable. No pleural effusion. No pneumothorax. Heart/Mediastinum: Stable cardiomediastinal silhouette. The patient is status post CABG. Surgical clips project over the left upper quadrant. Bones/joints: Median sternotomy changes seen. Mild S-shaped curvature of the spine is present. No acute osseous injury seen. XR/XR chest 1V portable [id number] IMPRESSION: No evidence of active cardiopulmonary disease.
--- NOTE | 2020-09-28 14:38 | W.ED.AMS ---
HPI - Altered Mental Status General: Chief Complaint: Fall Stated Complaint: FALL/ CONFUSION Time Seen by Provider: 09/28/20 14:32 History of Present Illness: HPI narrative: 72-year-old female comes in complaining of a fall. She fell at home when she tried to picking supervisor her daughter who is dependent on her for care she has some bruising over the right forehead and around the right eye there is no loss of consciousness she denies any specific pain at this time. Patient has a history hypertension she is on Plavix. Also has a history of coronary artery disease. Review of Systems Const: Denies: fever(s), chills, body aches, change in appetite, fatigue or malaise ENMT: Denies: throat pain, ear or mastoid pain, nasal discharge or nasal congestion Card: Denies: chest pain, edema, dyspnea on exertion or orthopnea Resp: Denies: dyspnea, productive cough or non-productive cough GI: Denies: abdominal pain, nausea, vomiting, hematemesis, coffee ground emesis, diarrhea, constipation, bloating, hematochezia or melena : Denies: flank pain, difficulty voiding, dysuria, urinary frequency or urinary urgency Skin/Breast: Denies: rash or pruritus PFSH ED PFSH: Medical History Altered mental status 2019 Anxiety Chronic back pain Back pain neuro stimulator removed Coronary artery disease Diabetes Hypertension Pulmonary embolism Surgical History H/O inguinal hernia repair History of cataract surgery Hx of appendectomy S/P CABG x 1 Family History Other Unknown family medical history Social History Smoking and tobacco status: never smoked Alcohol intake: never Household members: family Housing: House Physical Exam Const: COMMON NORMALS: no acute distress GENERAL APPEARANCE: cooperative and comfortable HENMT: COMMON NORMALS: normocephalic, hearing grossly normal bilaterally, external ears normal, EAC's normal, TM's normal bilaterally, Normal nasal mucous membranes and turbinates present, moist oral mucous membranes and oropharynx normal HEAD & SCALP: normocephalic NOSE: Normal nasal mucous membranes and turbinates present EXTERNAL EAR: Yes external ears normal EXTERNAL AUDITORY CANAL: EAC's normal TYMPANIC MEMBRANE: TM's normal bilaterally OTHER: Ecchymosis of the right side of the forehead and right eye no deformity Eye: COMMON NORMALS: Equal, round and reactive pupils present, EOMs intact bilaterally, conjunctivae normal and no scleral icterus CONJUNCTIVA: Yes conjunctivae normal PUPIL: Yes Equal, round and reactive pupils present Neck/C-Spine: COMMON NORMALS: full ROM, no lymphadenopathy, supple and no JVD Lymph: LYMPHATIC: no lymphadenopathy noted and no lymphedema noted Resp: COMMON NORMALS: normal respiratory effort, No retractions, No use of accessory muscles and clear to auscultation bilaterally AUSCULTATION: clear to auscultation bilaterally Cardio: COMMON NORMALS: no JVD, regular rate, regular rhythm and No murmurs present (Cardio) RATE: regular rate RHYTHM: regular rhythm GI: COMMON NORMALS: Soft to palpation and No hepatosplenomegaly present AUSCULTATION: Yes normoactive bowel sounds PALPATION: Yes Soft to palpation, No Tenderness to palpation present (GI), No Guarding due to palpation present (GI) and Yes No hepatosplenomegaly present Extremity: COMMON NORMALS: normal to inspection, capillary refill normal, no clubbing, cyanosis or edema, no calf tenderness and no pedal edema Skin: COMMON NORMALS: no rashes or lesions noted GENERAL SKIN EXAM: no rashes or lesions noted Course Vital Signs: Vital signs: Vital Signs Pulse Rate 80 09/28/20 17:11 Respiratory Rate 15 09/28/20 17:11 Blood Pressure 125/61 09/28/20 17:11 Pulse Oximetry 100 09/28/20 17:11 MDM - Altered Mental Status MDM Narrative: Medical decision making narrative: Head CT is negative. Facial bones negative. Patient wishes to go home she does have some anemia but it is chronic will discharge home follow-up as needed. Lab Data: Labs: Lab Results 09/28/20 09/28/20 09/28/20 Range/Units 15:15 15:15 15:15 WBC 6.6 (4.0-10.0) 10^3/ uL RBC 3.34 L (4.1-5.3) 10^6/u L Hgb 9.7 L (11.5-15.3) g/dL Hct 30.5 L (37.0-47.0) % MCV 91.3 (81-99) fL MCH 29.0 (28.0-34.0) pg MCHC 31.8 (30.0-36.0) g/dL RDW 15.0 (12.1-15.1) % Plt Count 354 (130-400) 10^3/c mm MPV 9.7 (7.4-10.4) fL Neut % (Auto) 61.6 % Lymph % (Auto) 22.5 % Benson % (Auto) 10.3 % Eos % (Auto) 4.5 % Baso % (Auto) 0.8 % Neut # (Auto) 4.08 (1.8-7.7) 10^3/u L Lymph # (Auto) 1.5 (0.8-4.8) 10^3/u L Benson # (Auto) 0.7 (0.2-0.9) 10^3/u L Eos # (Auto) 0.3 (0.0-0.8) 10^3/u L Baso # (Auto) 0.1 (0.0-0.1) 10^3/u L Nucleated RBC % (a uto) 0 % Nucleated RBCs # 0.0 /100WBC Sodium 141 (136-145) mmol/L Potassium 3.8 (3.5-5.1) mmol/L Chloride 107 (98-107) mmol/L Carbon Dioxide 24 (22-29) mmol/L Anion Gap 13.8 (5-19) BUN 8 (8-23) mg/dL Creatinine 0.6 (0.5-0.9) mg/dL GFR Calculation Not Reportable Glucose 97 (65-115) mg/dL Calculated Osmolal ity 290 (285-295) mOsm/k g Calcium 8.4 L (8.5-10.5) mg/dL Total Bilirubin 0.2 (0.15-1.2) mg/dL AST 12 (0-32) U/L ALT 7 (0-33) U/L Alkaline Phosphata se 66 (35-105) IU/L Total Protein 6.9 (6.6-8.7) g/dL Albumin 3.9 (3.5-5.2) g/dL Globulin 3.0 (1.3-4.6) g/dL Urine Color Yellow (Yellow) Urine Appearance Clear (CLEAR) Urine pH 5 (5-7) Ur Specific Gravit y 1.015 (1.005-1.030) Urine Protein Neg (Negative) Urine Glucose (UA) Norm (Normal) Urine Ketones Negative (Negative) Urine Blood Neg (Negative) Urine Nitrate Negative (Negative) Urine Bilirubin Neg (Negative) Urine Urobilinogen Norm (Negative) mg/dL Ur Leukocyte Damaris ase Negative (Negative) Discharge Plan Discharge Patient Disposition: Home Clinical Impression: Fall Condition: Stable Prescriptions: No Action clopidogrel 75 mg tablet 75 mg PO DAILY RF: 0 aspirin 81 mg tablet,chewable 81 mg PO DAILY RF: 0 lisinopril 2.5 mg tablet 2.5 mg PO DAILY RF: 0 rosuvastatin 10 mg tablet 10 mg PO DAILY RF: 0 metoprolol tartrate 25 mg Tablet 25 mg PO Q12H Qty: 60 RF: 0 Discharge Orders: Discharge ED (Routine); Ordered 09/28/20 Ordered By: Cy Sesay Referrals: Paulina Dumont APRN [Primary Care Provider] - Discharge Diet: Usual diet Discharge Activity: Increase activity as tolerated Patient Instructions: Opioid Safety Coding Level of Care Code ED Testing Tech for Monique Freedman
--- NOTE | 2020-09-28 15:02 | CT_ITS ---
WS: [id number] CT HEAD TECHNIQUE: Noncontrast CT of the head obtained from the skullbase to the vertex. CLINICAL INFORMATION: fall, closed head injury COMPARISON: August 18, 2020 DLP: 794.[address] scans at [facility] use at least one of these dose optimization techniques: automat ed exposure control; mA and/or kV adjustment per patient size (includes targeted exams where dose is matched to clinical indication); or iterative reconstruction. FINDINGS: No evidence of intracranial hemorrhage or mass effect. Ventricular system and basal cisterns are haynes nt. Moderate small vessel changes with moderate parenchymal volume loss. Chronic lacunar infarcts rig ht lateral basal ganglia and bilateral thalami. Chronic infarct left frontal parietal white matter. N o extra-axial fluid collections. No evidence of mass or mass effect. Paranasal sinuses and mastoid air cells are well aerated. .Soft tissue scalp edema right frontal. Und erlying calvarium is normal. CT/CT head wo con* [id number] IMPRESSION: 1. No evidence of intracranial hemorrhage or mass effect. 2. Moderate small vessel changes. Moderate parenchymal volume loss. 3. Chronic lacunar infarcts right basal ganglia and right thalamus. Chronic la cunar infarct left thalamus . 4. Soft tissue scalp edema right frontal. Underlying calvarium is normal.
[2020-09-28 15:21] LABS: Add Urine Microscopic? NO; Charge for UA Resulting for Rev
[2020-09-28 15:23] VITALS: BP 125/61; PULSE 80; RESP 15; O2SAT 100
[2020-09-28 15:25] LABS: Basophils # 0.1 10^3/uL (0.0-0.1); Basophils % 0.8 %; Eosinophils # 0.3 10^3/uL (0.0-0.8); Eosinophils % 4.5 %; Hematocrit 30.5 % (37.0-47.0); Hemoglobin 9.7 g/dL (11.5-15.3); Lymphocytes # 1.5 10^3/uL (0.8-4.8); Lymphocytes % 22.5 %; Mean Corpuscular HGB Conc 31.8 g/dL (30.0-36.0); Mean Corpuscular Volume 91.3 fL (81-99); Mean Platelet Volume 9.7 fL (7.4-10.4); Monocytes # 0.7 10^3/uL (0.2-0.9); Monocytes % 10.3 %; Neutrophils # 4.08 10^3/uL (1.8-7.7); Neutrophils % 61.6 %; Nucleated Red Blood Cells % 0 %; Platelet Count 354 10^3/cmm (130-400); Red Blood Count 3.34 10^6/uL (4.1-5.3); White Blood Count 6.6 10^3/uL (4.0-10.0)
[2020-09-28 15:31] LABS: Bilirubin Urine Neg (Negative); Blood Urine Neg (Negative); Glucose Urine UA Norm (Normal); Ketones Urine Negative (Negative); Leukocyte Esterase Urine Negative (Negative); Nitrate Urine Negative (Negative); Protein Urine Neg (Negative); Specific Gravity, Urine 1.015 (1.005-1.030); Urine Appearance Clear (CLEAR); Urine Color Yellow (Yellow); Urobilinogen Urine Norm (Negative); pH Urine 5 (5-7)
--- NOTE | 2020-09-28 16:00 | PC.PHAR ---
pt unable to verify medications-pts daughter gonzalez states [facility] sets up the pts medications-pts daughter gonzalez states she thinks the pt takes the crestor bid-angeline from [facility] states the pts med is set up like the med list says which is 10mg po daily-
[2020-09-28 16:03] LABS: Alanine Aminotransferase 7 U/L (0-33); Albumin Level 3.9 g/dL (3.5-5.2); Alkaline Phosphatase 66 IU/L (35-105); Anion Gap 13.8 (5-19); Aspartate Amino Transferase 12 U/L (0-32); Blood Urea Nitrogen 8 mg/dL (8-23); Calcium 8.4 mg/dL (8.5-10.5); Carbon Dioxide 24 mmol/L (22-29); Chloride 107 mmol/L (98-107); Glucose 97 mg/dL (65-115); Osmolality Calculated 290 mOsm/kg (285-295); Potassium 3.8 mmol/L (3.5-5.1); Sodium 141 mmol/L (136-145); Total Bilirubin 0.2 mg/dL (0.15-1.2); Total Protein 6.9 g/dL (6.6-8.7)
[2020-09-28 17:11] VITALS: BP 125/61; PULSE 80; RESP 15; O2SAT 100
== END 2020-09-28 17:12 | disposition home or self-care (01) ==
PROVIDERS: Emergency Provider Family Medicine; PCP Nurse Practitioner Family
DX: S00.83XA Contusion of other part of head, initial encounter (principal); W19.XXXA Unspecified fall, initial encounter
CPT/HCPCS: 70450; 70486; 71045; 80053; 81003; 85025; 93005; 99283

== ENCOUNTER 2020-09-30 15:52 | Emergency (ER) | payer MEDICARE, SELFPAY ==
[2020-09-30 16:06] VITALS: BP 103/60; PULSE 63; RESP 18; TEMP 36.8; O2SAT 99; BMI 22.4
--- NOTE | 2020-09-30 16:37 | XRR_ITS ---
PROCEDURE INFORMATION: Exam: XR Chest Exam date and time: 09/30/2020 4:44 PM Age: 80 years old Clinical indication: Dyspnea; Additional info: Reduced breath sounds TECHNIQUE: Imaging protocol: XR of the chest. Views: 1 view. COMPARISON: CR XR chest 1V portable [id number] 09/28/2020 2:53 PM FINDINGS: Lungs: No consolidative pulmonary infiltrates are noted. Pleural spaces: Unremarkable. No pleural effusion. No pneumothorax. Heart/Mediastinum: No cardiomegaly. Bones/joints: Median sternotomy noted. Postop change right shoulder. XR/XR chest 1V portable [id number] IMPRESSION: 1. No acute cardiopulmonary disease demonstrated. 2. There is no interval change from the prior examination.
--- NOTE | 2020-09-30 16:43 | ECG_ITS ---
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 Measurements Intervals [place] Rate: 67 P: 60 MO: 178 QRS: 56 QRSD: 111 T: 53 QT: 515 QTc: 548 Interpretive Statements SINUS RHYTHM MODERATE INTRAVENTRICULAR CONDUCTION DELAY [110+ ms QRS DURATION] PROLONGED QT INTERVAL Compared to ECG 09/28/2020 14:52:44 Intraventricular conduction delay now present Sinus bradycardia no longer present Incomplete right bundle-branch block no longer present Electronically Signed On 10-01-2020 15:34:51 CDT by Angelito Perez M.D. [email or web address]/[id number]
[2020-09-30 16:53] LABS: Basophils # 0.1 10^3/uL (0.0-0.1); Basophils % 1.1 %; Eosinophils # 0.3 10^3/uL (0.0-0.8); Hematocrit 33.7 % (37.0-47.0); Hemoglobin 10.6 g/dL (11.5-15.3); Lymphocytes # 1.4 10^3/uL (0.8-4.8); Lymphocytes % 22.1 %; Mean Corpuscular HGB Conc 31.5 g/dL (30.0-36.0); Mean Corpuscular Hemoglobin 28.6 pg (28.0-34.0); Mean Corpuscular Volume 91.1 fL (81-99); Mean Platelet Volume 9.9 fL (7.4-10.4); Monocytes # 0.7 10^3/uL (0.2-0.9); Monocytes % 11.2 %; Neutrophils # 3.82 10^3/uL (1.8-7.7); Neutrophils % 61.3 %; Nucleated Red Blood Cells % 0 %; Platelet Count 407 10^3/cmm (130-400); Red Cell Distribution Width 15.3 % (12.1-15.1); White Blood Count 6.2 10^3/uL (4.0-10.0)
[2020-09-30 17:00] LABS: Add Urine Microscopic? YES; Bilirubin Urine Neg (Negative); Blood Urine Neg (Negative); Glucose Urine UA Norm (Normal); Ketones Urine Negative (Negative); Leukocyte Esterase Urine Negative (Negative); Nitrate Urine Negative (Negative); Protein Urine Neg (Negative); Urine Appearance Hazy (CLEAR); Urine Color Yellow (Yellow); Urobilinogen Urine 1 mg/dL (Negative); pH Urine 5 (5-7)
[2020-09-30 17:01] LABS: RBC Urine RARE /hpf (0-2); Squamous Epithelial Cell Urine 0-4 /hpf (0-5)
[2020-09-30 17:02] LABS: Add Urine Culture? No; Bacteria Urine TRACE /hpf; Hyaline Casts Urine 0-4 /lpf; Mucus Urine 1+ /hpf
[2020-09-30 17:09] LABS: Alanine Aminotransferase 6 U/L (0-33); Albumin Level 4.2 g/dL (3.5-5.2); Alkaline Phosphatase 69 IU/L (35-105); Aspartate Amino Transferase 15 U/L (0-32); Blood Urea Nitrogen 11 mg/dL (8-23); Calcium 9.1 mg/dL (8.5-10.5); Carbon Dioxide 25 mmol/L (22-29); Chloride 105 mmol/L (98-107); Creatine Phosphokinase 50 U/L (26-192); Globulin 3.9 g/dL (1.3-4.6); Glucose 92 mg/dL (65-115); Osmolality Calculated 293 mOsm/kg (285-295); Sodium 142 mmol/L (136-145); Total Bilirubin 0.4 mg/dL (0.15-1.2); Total Protein 8.1 g/dL (6.6-8.7)
[2020-09-30 17:10] LABS: Lactate (Lactic Acid level) 0.7 mmol/L (0.5-2.2)
[2020-09-30 17:15] VITALS: RESP 18
--- NOTE | 2020-09-30 17:23 | PC.PHAR ---
PT'S GRANDDAUGHTER BROUGHT IN PT'S MEDICATION. THE LIST IN THE CHART IS CORRECT. THE GRANDDAUGHTER DID NOT, HOWEVER, KNKOW IF THE PT TOOK THE MEDICATION TODAY OR NOT. THE PT CANNOT ANSWER THAT QUESTION, SHE IS VERY CONFUSED.
[2020-09-30 17:46] VITALS: RESP 18
[2020-09-30 17:47] LABS: Anion Gap 16.1 (5-19); Potassium 4.1 mmol/L (3.5-5.1)
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
[2020-09-30] MEDS: nitrofurantoin SR (BID) 100 mg Capsule PO (18:13)
[2020-09-30 18:26] VITALS: RESP 18
== END 2020-09-30 18:27 | disposition home or self-care (01) ==
PROVIDERS: Emergency Provider Family Medicine; PCP Nurse Practitioner Family
DX: F03.90 Unspecified dementia, unspecified severity, without behavioral disturbance, psychotic disturbance, mood disturbance, and anxiety (principal); N39.0 Urinary tract infection, site not specified; Z79.82 Long term (current) use of aspirin; Z79.02 Long term (current) use of antithrombotics/antiplatelets; I25.10 Atherosclerotic heart disease of native coronary artery without angina pectoris; E11.9 Type 2 diabetes mellitus without complications; I10 Essential (primary) hypertension; Z95.1 Presence of aortocoronary bypass graft
CPT/HCPCS: 71045; 80053; 81001; 82550; 83605; 85025; 93005; 99283

== ENCOUNTER 2020-10-02 16:35 | Observation (INO) | payer MEDICARE, MEDICAID, SELFPAY ==
[2020-10-02 16:42] VITALS: BP 133/65; PULSE 87; RESP 12; O2SAT 100; BMI 21.4
--- NOTE | 2020-10-02 16:48 | ECG_ITS ---
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 Measurements Intervals [place] Rate: 77 P: 49 ID: [id number] QRS: 58 QRSD: 107 T: 32 QT: 454 QTc: 517 Interpretive Statements SINUS RHYTHM INCOMPLETE RIGHT BUNDLE BRANCH BLOCK [90+ ms QRS DURATION, TERMINAL R IN V1/V2, 40+ ms S IN I/aVL/V4/V5/V6] PROLONGED QT INTERVAL Compared to ECG 09/30/2020 17:38:53 Incomplete right bundle-branch block now present Intraventricular conduction delay no longer present Electronically Signed On 10-02-2020 18:53:02 CDT by Angelito Perez M.D. [id number]
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
[2020-10-02 18:25] LABS: Amphetamines Screen Urine Negative (Negative); Barbiturates Screen Urine Negative (Negative); Benzodiazepines Screen Urine Negative (Negative); Cocaine Screen Urine Negative (Negative); Opiate Screen Urine Negative (Negative); PCP Screen Urine Negative (Negative); THC Screen Urine Negative (Negative)
[2020-10-02 18:35] LABS: Add Urine Microscopic? YES; Bilirubin Urine Neg (Negative); Blood Urine Neg (Negative); Glucose Urine UA Norm (Normal); Ketones Urine Negative (Negative); Leukocyte Esterase Urine 2+ (Negative); Nitrate Urine Negative (Negative); Protein Urine Neg (Negative); Urine Appearance Clear (CLEAR); Urine Color Yellow (Yellow); Urobilinogen Urine Norm (Negative); pH Urine 6 (5-7)
[2020-10-02 18:36] LABS: Squamous Epithelial Cell Urine 0-4 /hpf (0-5); WBC Urine 25-40 /hpf (0-5)
[2020-10-02 18:37] LABS: Add Urine Culture? Yes; Bacteria Urine 1+ /hpf
[2020-10-02] MEDS: LORazepam 2 mg/mL INJ 1 mL 0.5 MG IVP (18:48)
[2020-10-02 18:50] VITALS: BP 138/82; PULSE 85; RESP 12; O2SAT 100
[2020-10-02 19:26] LABS: Basophils # 0.1 10^3/uL (0.0-0.1); Basophils % 1.2 %; Eosinophils # 0.1 10^3/uL (0.0-0.8); Eosinophils % 1.8 %; Hematocrit 32.4 % (37.0-47.0); Hemoglobin 10.2 g/dL (11.5-15.3); Lymphocytes # 1.4 10^3/uL (0.8-4.8); Lymphocytes % 25.1 %; Mean Corpuscular HGB Conc 31.5 g/dL (30.0-36.0); Mean Corpuscular Hemoglobin 28.6 pg (28.0-34.0); Mean Corpuscular Volume 90.8 fL (81-99); Mean Platelet Volume 9.8 fL (7.4-10.4); Monocytes # 0.6 10^3/uL (0.2-0.9); Monocytes % 10.9 %; Neutrophils # 3.42 10^3/uL (1.8-7.7); Neutrophils % 60.8 %; Nucleated Red Blood Cells % 0 %; Platelet Count 338 10^3/cmm (130-400); Red Blood Count 3.57 10^6/uL (4.1-5.3); Red Cell Distribution Width 15.1 % (12.1-15.1); White Blood Count 5.6 10^3/uL (4.0-10.0)
[2020-10-02 19:38] LABS: Ammonia 22 umol/L (11-51)
[2020-10-02 19:41] VITALS: BP 139/59; PULSE 86; RESP 13; O2SAT 98
[2020-10-02 19:49] LABS: NT Pro B Type Natriuretic Pept 215 pg/mL (0-450); Procalcitonin 0.04 ng/mL (0-0.5); Thyroid Stimulating Hormone 1.49 uIU/mL (0.27-4.20)
[2020-10-02 20:00] LABS: Acetaminophen < 5.0 ug/mL (10-30); Alanine Aminotransferase < 5 U/L (0-33); Albumin Level 4.2 g/dL (3.5-5.2); Alcohol Level < 10 mg/dL (0-10); Alkaline Phosphatase 63 IU/L (35-105); Anion Gap 17.7 (5-19); Aspartate Amino Transferase 11 U/L (0-32); Blood Urea Nitrogen 8 mg/dL (8-23); Carbon Dioxide 22 mmol/L (22-29); Chloride 105 mmol/L (98-107); Globulin 3.1 g/dL (1.3-4.6); Glucose 84 mg/dL (65-115); Osmolality Calculated 290 mOsm/kg (285-295); Potassium 3.7 mmol/L (3.5-5.1); Salicylate < 0.3 mg/dL (3-10); Sodium 141 mmol/L (136-145); Total Bilirubin 0.5 mg/dL (0.15-1.2); Total Protein 7.3 g/dL (6.6-8.7)
[2020-10-02 20:23] VITALS: BP 147/72; PULSE 80; RESP 18; TEMP 37.1; O2SAT 99
[2020-10-02 20:25] LABS: Iron 47 ug/dL (37-145); Percent Saturation 19.3 % (20-50); Total Iron Binding Capacity 243 mcg/dl; Unsaturated Iron Binding 196 ug/dL (112-347)
[2020-10-02] MEDS: metoprolol tartrate 25 mg Tablet PO (21:18)
[2020-10-02] MEDS: sodium chloride 0.9% 1,000 ML 30 ML IV (21:18)
[2020-10-02 23:30] VITALS: BP 129/74; PULSE 63; RESP 17; TEMP 37.3; O2SAT 98
[2020-10-03] MEDS: acetaminophen 325 mg Tablet 650 MG PO (01:58)
[2020-10-03 04:14] VITALS: BP 131/71; PULSE 64; RESP 17; TEMP 36.9; O2SAT 99
[2020-10-03 06:19] LABS: Basophils # 0.1 10^3/uL (0.0-0.1); Eosinophils # 0.1 10^3/uL (0.0-0.8); Eosinophils % 2.4 %; Hematocrit 32.5 % (37.0-47.0); Hemoglobin 10.2 g/dL (11.5-15.3); Lymphocytes # 1.4 10^3/uL (0.8-4.8); Lymphocytes % 23.8 %; Mean Corpuscular HGB Conc 31.4 g/dL (30.0-36.0); Mean Corpuscular Hemoglobin 28.7 pg (28.0-34.0); Mean Corpuscular Volume 91.3 fL (81-99); Mean Platelet Volume 9.9 fL (7.4-10.4); Monocytes # 0.8 10^3/uL (0.2-0.9); Monocytes % 13.2 %; Neutrophils # 3.47 10^3/uL (1.8-7.7); Neutrophils % 59.3 %; Nucleated Red Blood Cells % 0 %; Platelet Count 312 10^3/cmm (130-400); Red Blood Count 3.56 10^6/uL (4.1-5.3); White Blood Count 5.9 10^3/uL (4.0-10.0)
[2020-10-03 06:36] LABS: Alanine Aminotransferase 6 U/L (0-33); Albumin Level 3.9 g/dL (3.5-5.2); Alkaline Phosphatase 59 IU/L (35-105); Anion Gap 13.8 (5-19); Aspartate Amino Transferase 11 U/L (0-32); Blood Urea Nitrogen 6 mg/dL (8-23); Calcium 9.1 mg/dL (8.5-10.5); Carbon Dioxide 24 mmol/L (22-29); Chloride 107 mmol/L (98-107); Chol HDL Ratio 2.67 mg/dL (0.0-4.40); Cholesterol 128 mg/dL (0-200); Globulin 2.9 g/dL (1.3-4.6); Glucose 87 mg/dL (65-115); HDL Cholesterol 48 mg/dL (60-100); LDL Cholesterol Calculated 65 mg/dL (50-129); Osmolality Calculated 289 mOsm/kg (285-295); Potassium 3.8 mmol/L (3.5-5.1); Sodium 141 mmol/L (136-145); Total Bilirubin 0.6 mg/dL (0.15-1.2); Total Protein 6.8 g/dL (6.6-8.7); Triglycerides 74 mg/dL (0-150); VLDL Cholestrol Calculation 15 mg/dL (0-30)
[2020-10-03 06:41] LABS: Estmated Average Glucose 108; Hemoglobin A1C 5.4 % (4.0-6.0)
[2020-10-03 07:37] VITALS: BP 150/79; PULSE 70; RESP 16; TEMP 36.8; O2SAT 96
--- NOTE | 2020-10-03 10:37 | PC.CHAP ---
Pastoral Care Encounter/Spiritual Assessment Type of Contact [] Declined canal boat captain visit [] Patient/Family/Request visit [] Outpatient visit [] Follow-up visit [] Physician referral [] Code/Alert [x] Routine visit [] Staff referral [] Actively dying [] Patient sleeping [] Family support [] [] Out of room [] Palliative care [] [x]x Receiving care in room [] Pre-surgical visit [] Trauma [] Long length of stay [] ICU visit [] Other: Relational/Emotional Strength [] Patient feels connected with others/family/visitors/staff [] Distress [] Loneliness/isolation [] Abandonment Spirituality of Patient [] Person of [place] [] Attends Spiritism of their [place] [] Believes in Prayer [] Reads Bible or Religion materials [] There are Spiritual issues to be addressed Technical Healthcare Consultant Interventions [] Prayer [] Active listening [] Non-anxious presence [] Spiritual/emotional support [] Crisis/trauma care [] Spiritual counseling [] Bereavement support [] Provided bereavement packet [] Provided Bible/devotional materials [] Provided toy/stuffed animal, coloring book to patient or family member [] Provided Communion [] Anointing/[place] [] Salvation [] Completed spiritual assessment [] Other: Impact on Illness or Injury [] Angry [] Fearful [] Anxious [] Often cries [] Exhaustion [] Unable to work [] Unable to attend spiritism [] Unable to walk/stand [] Unable to read [] Unable to drive [] Unable to eat/drink [] Unable to sleep [] Unable to be with family [] Patient intubated [] Other: Summary Time spent with patient
[2020-10-03] MEDS: atorvastatin 40 mg Tablet PO (10:41)
[2020-10-03] MEDS: aspirin 81 mg Chew Tablet PO (10:41)
[2020-10-03] MEDS: clopidogrel 75 mg Tablet PO (10:41)
[2020-10-03] MEDS: famotidine 20 mg Tablet PO (10:41)
[2020-10-03] MEDS: lisinopril 2.5 mg Tablet PO (10:41)
[2020-10-03] MEDS: metoprolol tartrate 25 mg Tablet PO ×2 (10:41→21:43)
[2020-10-03 11:26] VITALS: BP 137/76; PULSE 71; RESP 16; TEMP 36.8; O2SAT 98
[2020-10-03] MEDS: cefTRIAXone 1,000 MG in sodium chloride 0.9% (plus) 50 ML 100 MG IV (13:30)
[2020-10-03 15:53] VITALS: BP 137/72; PULSE 66; RESP 16; TEMP 36.9; O2SAT 97
[2020-10-03 19:17] VITALS: BP 124/68; PULSE 71; RESP 18; TEMP 37.1; O2SAT 99
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
[2020-10-03 23:50] VITALS: BP 135/77; PULSE 69; RESP 17; TEMP 37.4; O2SAT 97
[2020-10-04 03:47] VITALS: BP 126/72; PULSE 60; RESP 17; TEMP 37.3; O2SAT 96
[2020-10-04] MEDS: sodium chloride 0.9% 1,000 ML 30 ML IV ×2 (04:42→20:43)
[2020-10-04 07:42] VITALS: BP 132/67; PULSE 63; RESP 18; TEMP 37.6; O2SAT 96
[2020-10-04] MEDS: clopidogrel 75 mg Tablet PO (09:24)
[2020-10-04] MEDS: famotidine 20 mg Tablet PO ×2 (09:24→17:32)
[2020-10-04] MEDS: metoprolol tartrate 25 mg Tablet PO ×2 (09:24→20:43)
[2020-10-04] MEDS: lisinopril 2.5 mg Tablet PO (09:24)
[2020-10-04] MEDS: atorvastatin 40 mg Tablet PO (09:24)
[2020-10-04] MEDS: aspirin 81 mg Chew Tablet PO ×2 (09:25→09:26)
[2020-10-04 11:15] VITALS: BP 131/77; PULSE 62; RESP 18; TEMP 37.8; O2SAT 97
[2020-10-04] MEDS: cefTRIAXone 1,000 MG in sodium chloride 0.9% (plus) 50 ML 100 MG IV (13:08)
--- NOTE | 2020-10-04 13:58 | XR_ITS ---
WS: [id number] Exam: XR chest 1V portable [id number] Date/Time of Exam: 10/04/2020 1:58 PM Reason For Exam: fever, aspiration Comparison 09/30/2020. The lungs are clear. Cardiomediastinal structures are unremarkable for technique. Signs of previous C ABG surgery. Anchoring screws in the right humeral head. XR/XR chest 1V portable [id number] IMPRESSION: 1. No acute cardiopulmonary finding. No change.
[2020-10-04] MEDS: levoFLOXacin 750 mg Tablet PO (15:21)
--- NOTE | 2020-10-04 15:37 | PC.NURSE ---
notified Dr Paris that patient go choked on the Levaquin pill.
[2020-10-04 16:00] VITALS: BP 131/77; PULSE 62; RESP 18; TEMP 37.8; O2SAT 97
[2020-10-04] MEDS: acetaminophen 325 mg Tablet 650 MG PO (19:25)
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
[2020-10-04 19:54] VITALS: BP 137/71; PULSE 68; RESP 16; TEMP 37.2; O2SAT 98
[2020-10-04 23:43] VITALS: BP 133/74; PULSE 64; RESP 18; TEMP 36.8; O2SAT 99
[2020-10-05 04:00] VITALS: BP 131/70; PULSE 68; RESP 15; TEMP 36.7; O2SAT 98
[2020-10-05 06:39] LABS: Basophils # 0.1 10^3/uL (0.0-0.1); Basophils % 1.1 %; Eosinophils # 0.1 10^3/uL (0.0-0.8); Hematocrit 32.7 % (37.0-47.0); Hemoglobin 10.4 g/dL (11.5-15.3); Lymphocytes % 22.3 %; Mean Corpuscular HGB Conc 31.8 g/dL (30.0-36.0); Mean Corpuscular Volume 91.1 fL (81-99); Mean Platelet Volume 10.3 fL (7.4-10.4); Monocytes # 0.7 10^3/uL (0.2-0.9); Neutrophils # 2.57 10^3/uL (1.8-7.7); Neutrophils % 58.4 %; Nucleated Red Blood Cells % 0 %; Platelet Count 301 10^3/cmm (130-400); Red Blood Count 3.59 10^6/uL (4.1-5.3); Red Cell Distribution Width 14.8 % (12.1-15.1); White Blood Count 4.4 10^3/uL (4.0-10.0)
[2020-10-05 07:03] LABS: Anion Gap 13.7 (5-19); Blood Urea Nitrogen 9 mg/dL (8-23); Calcium 9.3 mg/dL (8.5-10.5); Carbon Dioxide 23 mmol/L (22-29); Chloride 108 mmol/L (98-107); Glucose 88 mg/dL (65-115); Osmolality Calculated 290 mOsm/kg (285-295); Potassium 3.7 mmol/L (3.5-5.1); Sodium 141 mmol/L (136-145)
[2020-10-05 07:56] VITALS: BP 168/75; PULSE 67; RESP 18; TEMP 36.8; O2SAT 97
[2020-10-05] MEDS: clopidogrel 75 mg Tablet PO (08:32)
[2020-10-05] MEDS: famotidine 20 mg Tablet PO (08:32)
[2020-10-05] MEDS: lisinopril 2.5 mg Tablet PO (08:32)
[2020-10-05] MEDS: aspirin 81 mg Chew Tablet PO (08:32)
[2020-10-05] MEDS: metoprolol tartrate 25 mg Tablet PO (08:32)
[2020-10-05] MEDS: atorvastatin 40 mg Tablet PO (08:32)
[2020-10-05 12:00] VITALS: BP 145/70; PULSE 64; RESP 16; TEMP 36.9; O2SAT 97
--- NOTE | 2020-10-05 12:43 | PC.NURSE ---
Patient has been wheeled down to ICU to visit with her grand daughter before she is discharged today to care home home.
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
[2020-10-05 13:17] VITALS: BP 145/70; PULSE 64; RESP 16; TEMP 36.9; O2SAT 97
--- NOTE | 2020-10-05 14:51 | PC.SOCIAL ---
*IMM* Gave the IMM page 2 to the daughter via phone. Initialled and placed in the chart.
[2020-10-05 15:57] VITALS: BP 145/70; PULSE 64; RESP 16; TEMP 36.9; O2SAT 97
== END 2020-10-05 15:00 | disposition skilled nursing facility (03) ==
LOC: ER 17:38 → MEDSURG 18:23
PROVIDERS: Admitting Provider Student in an Organized Health Care Education/Training Program; Emergency Provider Emergency Medicine; PCP Nurse Practitioner Family; Visit Provider Internal Medicine
DX: F03.90 Unspecified dementia, unspecified severity, without behavioral disturbance, psychotic disturbance, mood disturbance, and anxiety (principal); R50.9 Fever, unspecified; T07.XXXA Unspecified multiple injuries, initial encounter; F41.9 Anxiety disorder, unspecified; I25.10 Atherosclerotic heart disease of native coronary artery without angina pectoris; E11.9 Type 2 diabetes mellitus without complications; I10 Essential (primary) hypertension; Z86.711 Personal history of pulmonary embolism
CPT/HCPCS: 36415; 71045; 80048; 80053; 80061; 80306; 80307; 81001; 82140; 83036; 83540; 83550; 83880; 84145; 84443; 85025; 87040; 87086; 92523; 92610; 93005; 96361; 96365; 96375; 99285; G0378; J0696; J2060; J7030

== ENCOUNTER 2021-02-23 16:38 | Emergency (ER) | payer MEDICARE, MEDICAID, SELFPAY ==
[2021-02-23] VITALS (8 sets, daily range): BP systolic 161–187; BP diastolic 62–85; PULSE 89–109; RESP 12–20; TEMP 36.8; O2SAT 94–98; BMI 18.5
--- NOTE | 2021-02-23 16:47 | XRR_ITS ---
PROCEDURE INFORMATION: Exam: XR Chest Exam date and time: 02/23/2021 4:47 PM Age: 80 years old Clinical indication: Pain; Angina pectoris; Prior surgery; Surgery type: Open heart; Additional info: Chest pain TECHNIQUE: Imaging protocol: XR of the chest. Views: 1 view. COMPARISON: CR XR chest 1V portable [id number] 10/04/2020 2:19 PM FINDINGS: Lungs: The lungs are clear. Pleural spaces: Unremarkable. No pleural effusion. No pneumothorax. Heart/Mediastinum: Changes of CABG are appreciated. A small hiatal hernia is present. Bones/joints: An orthopedic anchor is again seen in the proximal right humerus. No acute fracture is detected XR/XR chest 1V portable [id number] IMPRESSION: 1. No acute cardiopulmonary abnormality. 2. Small hiatal hernia. Radiation Dose CTDIVOL = (mGy): DLP = (mGy-cm)
--- NOTE | 2021-02-23 16:48 | ECG_ITS ---
[facility] Test Date: 2021-02-23 Pat Name: Leonela Magaña Department: Room: Gender: Female Gang Supervisor Pipe Lines: : 1940 Requested By: Javier Herman Order Number: [id number] Spain MD: Angelito Perez M.D. Measurements Intervals [place] Rate: 100 P: 78 PA: 154 QRS: 75 QRSD: 106 T: 62 QT: 403 QTc: 521 Interpretive Statements SINUS TACHYCARDIA INCOMPLETE RIGHT BUNDLE BRANCH BLOCK [90+ ms QRS DURATION, TERMINAL R IN V1/V2, 40+ ms S IN I/aVL/V4/V5/V6] POSSIBLE INFERIOR MYOCARDIAL INFARCTION , PROBABLY OLD [30 ms Q WAVE IN II/aVF] POSSIBLE ANTEROLATERAL MYOCARDIAL INFARCTION , OF INDETERMINATE AGE [30 ms Q WAVE IN I/aVL/V3-V6] Compared to ECG 10/02/2020 17:42:03 Myocardial infarct finding now present Sinus rhythm no longer present Prolonged QT interval no longer present Electronically Signed On 02-23-2021 22:04:22 CDT by Angelito Perez M.D. [email or web address].[email or web address]/store/NU/[id number] wilkinson
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
[2021-02-23 17:01] LABS: Basophils # 0.1 10^3/uL (0.0-0.1); Basophils % 0.6 %; Eosinophils # 0.1 10^3/uL (0.0-0.8); Eosinophils % 1.4 %; Hematocrit 37.3 % (37.0-47.0); Hemoglobin 11.9 g/dL (11.5-15.3); Lymphocytes % 12.3 %; Mean Corpuscular HGB Conc 31.9 g/dL (30.0-36.0); Mean Corpuscular Hemoglobin 28.9 pg (28.0-34.0); Mean Corpuscular Volume 90.5 fl (81-99); Mean Platelet Volume 10.1 fL (7.4-10.4); Monocytes # 0.7 10^3/uL (0.2-0.9); Monocytes % 8.2 %; Neutrophils # 6.47 10^3/uL (1.8-7.7); Neutrophils % 77.3 %; Nucleated Red Blood Cells % 0 %; Platelet Count 345 10^3/cmm (130-400); Red Blood Count 4.12 10^6/uL (4.1-5.3); Red Cell Distribution Width 14.8 % (12.1-15.1); White Blood Count 8.4 10^3/uL (4.0-10.0)
[2021-02-23 17:28] LABS: Troponin(5th) Baseline 19 ng/L (0-10)
[2021-02-23 17:30] LABS: Anion Gap 18.1 (5-19); Blood Urea Nitrogen 18 mg/dL (8-23); Calcium 9.6 mg/dL (8.5-10.5); Carbon Dioxide 20 mmol/L (22-29); Chloride 108 mmol/L (98-107); Glucose 137 mg/dL (65-115); Osmolality Calculated 298 mOsm/kg (285-295); Potassium 4.1 mmol/L (3.5-5.1); Sodium 142 mmol/L (136-145)
[2021-02-23 19:55] LABS: Troponin 5 2HR 19.75 ng/L (0-10); Troponin 5 2HR Delta 0.75 ABS# (0-10)
[2021-02-23 20:27] LABS: Bilirubin Urine Neg (Negative); Glucose Urine UA Norm (Normal); Ketones Urine Negative (Negative); Nitrate Urine Negative (Negative); Protein Urine 1+ (Negative); Specific Gravity, Urine 1.015 (1.005-1.030); Urine Appearance SL Hazy (CLEAR); Urine Color Yellow (Yellow); pH Urine 6 (5-7)
[2021-02-23 20:28] LABS: Leukocyte Esterase Urine 2+ (Negative); Urobilinogen Urine 4 mg/dL (Negative)
[2021-02-23 20:33] LABS: Blood Urine 2+ (Negative)
[2021-02-23 20:34] LABS: WBC Urine 25-40 /hpf (0-5)
[2021-02-23 20:35] LABS: Add Urine Culture? No; Bacteria Urine 2+ /hpf; Squamous Epithelial Cell Urine 15-25 /hpf (0-5)
[2021-02-24 02:55] VITALS: BP 164/82; PULSE 100; RESP 20
== END 2021-02-23 21:40 | disposition home or self-care (01) ==
PROVIDERS: Emergency Provider Emergency Medicine; PCP Nurse Practitioner Family
DX: R07.9 Chest pain, unspecified (principal); F03.90 Unspecified dementia, unspecified severity, without behavioral disturbance, psychotic disturbance, mood disturbance, and anxiety; N30.01 Acute cystitis with hematuria; Z79.82 Long term (current) use of aspirin; Z79.02 Long term (current) use of antithrombotics/antiplatelets; I25.10 Atherosclerotic heart disease of native coronary artery without angina pectoris; E11.9 Type 2 diabetes mellitus without complications; I10 Essential (primary) hypertension; Z86.711 Personal history of pulmonary embolism; Z95.1 Presence of aortocoronary bypass graft
CPT/HCPCS: 71045; 80048; 81001; 84484; 85025; 93005; 99283